=== PATIENT | female | born 1990 | race Caucasian/White ===

== ENCOUNTER → 2019-11-30 13:04 | Outpatient (CLI) | payer OTHER, SELFPAY ==
--- NOTE | 2019-11-30 13:10 | US_ITS ---
PROCEDURE: US THYROID CLINICAL INDICATION: THYROMEGALY COMPARISON: No exams were available for comparison FINDINGS: Right lobe: 1.8cm x 4.0cm x 1.6cm Left lobe: 1.7cm x 3.6cm x 1.3cm Isthmus: Prominent at 5 mm Additional findings: There is a 10 mm hypoechoic nodule in the mid polar region on the right with enhanced through transmission of sound. There are some low level echoes within this nodule. IMPRESSION: Complex cystic nodule on the right. T rads category 1, benign Dictated by: Francisco Eisenberg MD 12/01/2019 09:00 Francisco Eisenberg MD in [place] 12/01/2019 09:00
== END ==
PROVIDERS: PCP Nurse Practitioner Family; Visit Provider Nurse Practitioner
DX: I01.0 Acute rheumatic pericarditis (principal)
CPT/HCPCS: 76536

== ENCOUNTER → 2020-07-12 15:40 | Outpatient (CLI) | payer OTHER, SELFPAY ==
--- NOTE | 2020-07-12 15:43 | US_ITS ---
PROCEDURE: US THYROID CLINICAL INDICATION: THYROID NODULE 6 month follow up thyroid nodule COMPARISON: US US THYROID from 11/30/2019 FINDINGS: Right lobe: 2.3cm x 4.2cm x 2.0cm. There is a 12 mm cyst in the mid polar region of the right lobe of the thyroid gland. Previously there was some low level echoes within this nodule which are no longer apparent. Left lobe: 1.4cm x 4.1cm x 2.0cm. Unremarkable Isthmus: Unremarkable Additional findings: IMPRESSION: Benign-appearing cyst of the right lobe of the thyroid gland measuring 12 mm Dictated by: Francisco Eisenberg MD 07/15/2020 13:38 Francisco Eisenberg MD in [place] 07/15/2020 13:38
== END ==
PROVIDERS: PCP Nurse Practitioner; Visit Provider Nurse Practitioner
DX: E04.1 Nontoxic single thyroid nodule (principal)
CPT/HCPCS: 76536

== ENCOUNTER → 2020-07-31 14:29 | Outpatient (CLI) | payer OTHER, SELFPAY ==
--- NOTE | 2020-07-31 | CA_ITS ---
APPROVED REPORT Left Lower Extremity Venous Study for DVT. Live Truck Operator: DANETTE Indications Lower Extremity Pain: Left Patient denies trauma. She states she started having pain in her mid posterior calf 1 week ago. Family history of DVT and PE in mother. Vein Imaging CFV (L): compressive, spontaneous, phasic, augmentation FEM (L): compressive, spontaneous, phasic, augmentation POP (L): compressive, spontaneous, phasic, augmentation PTV (L): Compressible GSV (L): compressive, spontaneous, phasic, augmentation SSV (L): Compressible Peroneals (L):Compressible GAS (L): Compressible Findings No evidence of DVT or superficial thrombophlebitis in the veins scanned of the left lower extremity. Conclusion No evidence of DVT or superficial thrombophlebitis in the veins scanned of the left lower extremity. Electronically signed by : Francisco Eisenberg MD 07/31/2020 17:24:40
== END ==
PROVIDERS: PCP Nurse Practitioner; Visit Provider Nurse Practitioner
DX: M79.662 Pain in left lower leg (principal)
CPT/HCPCS: 93971

== ENCOUNTER → 2022-05-11 23:21 | Outpatient (CLI) | payer BC, SELFPAY ==
[2022-05-11 18:48] LABS: Basophils % 0.8 % (0.1-2.0); Eosinophils # 0.3 K/mm3 (0.0-0.4); Eosinophils % 5.3 % (0.1-12.0); Hematocrit 45.3 % (37.0-47.0); Hemoglobin 14.5 g/dL (12.2-16.2); Lymphocytes # 1.8 K/mm3 (0.7-4.5); Lymphocytes % 34.6 % (10-50); Mean Corpuscular Volume 87.6 fl (81-99); Mean Platelet Volume 8.6 fl (7.4-10.4); Monocytes # 0.3 K/mm3 (0.1-1.0); Monocytes % 5.9 % (1.7-9.3); Neutrophils # 2.8 K/mm3 (1.8-7.8); Neutrophils % 53.4 % (37.0-80.0); Platelet Count 288 K/mm3 (142-424); Red Blood Count 5.18 M/mm3 (4.20-5.40); Red Cell Distribution Width 14.3 % (11.5-17.5); White Blood Count 5.3 K/mm3 (4.8-10.8)
[2022-05-11 18:53] LABS: Alanine Aminotransferase 21 U/L (12-78); Albumin Level 3.7 g/dl (3.5-5.0); Albumin/Globulin Ratio 1.5 (1.1-1.8); Alkaline Phosphatase 94 U/L (38-126); Anion Gap 6.9 mEq/L (5-15); Aspartate Amino Transferase 23 U/L (14-36); Bilirubin,Total 0.3 mg/dl (0.2-1.3); Blood Urea Nitrogen 6 mg/dl (7-17); Calcium 8.4 mg/dl (8.4-10.2); Carbon Dioxide 24 mmol/L (22.0-30.0); Chloride 110 mmol/L (98-107); Chol/HDL Ratio 2.9 (1-3.5); Cholesterol 128 mg/dl (140-200); Estimated Glomerular Filt Rate 117 ml/min (>60); GFR (African American) 142 ML/MIN (>60); Globulin 2.4 g/dL (1.3-3.2); Glucose 96 mg/dl (74-100); HDL Cholesterol 44 mg/dl (40-60); Potassium 3.9 mmoL/L (3.5-5.1); Sodium 137 mmol/L (136-145); Total Protein,Serum 6.1 g/dl (6.3-8.2); Triglycerides 75 mg/dl (30-150); VLDL Cholesterol 15 mg/dL (0-40)
[2022-05-11 19:07] LABS: Direct LDL Cholesterol 73.64 mg/dL (100-129)
[2022-05-11 19:16] LABS: 25-OH Vitamin D, Total < 12.8 ng/mL (30-100)
[2022-05-11 19:24] LABS: Thyroid Stimulating Hormone 0.86 uIU/mL (0.465-4.68)
[2022-05-11 19:37] LABS: Hemoglobin A1C 4.9 % (4.0-6.0)
[2022-05-11 19:43] LABS: Vitamin B12 232 pg/mL (239-931)
== END ==
LOC: LAB.DROPOF 23:21
PROVIDERS: PCP Nurse Practitioner; Visit Provider Nurse Practitioner
DX: I10 Essential (primary) hypertension (principal); F41.8 Other specified anxiety disorders; E53.8 Deficiency of other specified B group vitamins; E55.9 Vitamin D deficiency, unspecified; E66.9 Obesity, unspecified; Z68.38 Body mass index [BMI] 38.0-38.9, adult
CPT/HCPCS: 80053; 80061; 82306; 82607; 83036; 84443; 85025

== ENCOUNTER → 2022-07-27 23:20 | Outpatient (CLI) | payer BC, SELFPAY ==
[2022-07-27 19:28] LABS: Creatinine,Urine Random 320 mg/dL (Not Estab.); Microalbumin/Creatinine Ratio 9.4
[2022-07-27 19:48] LABS: Chloride 100 mmol/L (98-107); Potassium 4.6 mmoL/L (3.5-5.1); Sodium 137 mmol/L (136-145)
[2022-07-27 19:50] LABS: Alanine Aminotransferase 24 U/L (12-78); Aspartate Amino Transferase 34 U/L (14-36); Blood Urea Nitrogen 7 mg/dl (7-17); Estimated Glomerular Filt Rate 117 ml/min (>60); GFR (African American) 142 ML/MIN (>60)
[2022-07-27 19:51] LABS: Albumin Level 4.3 g/dl (3.5-5.0); Albumin/Globulin Ratio 1.5 (1.1-1.8); Alkaline Phosphatase 102 U/L (38-126); Anion Gap 17.6 mEq/L (5-15); Bilirubin,Total 0.7 mg/dl (0.2-1.3); Calcium 9.1 mg/dl (8.4-10.2); Carbon Dioxide 24 mmol/L (22.0-30.0); Globulin 2.8 g/dL (1.3-3.2); Glucose 87 mg/dl (74-100); Total Protein,Serum 7.1 g/dl (6.3-8.2)
[2022-07-27 20:07] LABS: 25-OH Vitamin D, Total 23.2 ng/mL (30-100)
[2022-07-27 20:42] LABS: Vitamin B12 268 pg/mL (239-931)
== END ==
LOC: LAB.DROPOF 23:21
PROVIDERS: PCP Nurse Practitioner; Visit Provider Nurse Practitioner
DX: I10 Essential (primary) hypertension (principal); E53.8 Deficiency of other specified B group vitamins; E55.9 Vitamin D deficiency, unspecified
CPT/HCPCS: 80053; 82043; 82306; 82570; 82607

== ENCOUNTER → 2023-03-26 12:57 | Outpatient (CLI) | payer BC, SELFPAY ==
[2023-03-27 10:09] LABS: Progesterone 9.3 ng/mL (.)
== END ==
LOC: LAB 12:58
PROVIDERS: PCP Nurse Practitioner; Visit Provider Obstetrics & Gynecology
DX: N92.6 Irregular menstruation, unspecified (principal)
CPT/HCPCS: 36415; 84144; 84702

== ENCOUNTER 2023-03-30 07:39 | Outpatient (CLI) | payer BC, SELFPAY | END 2023-03-30 23:59 | LOC: LAB.DROPOF 03-31 07:39 | PROVIDERS: PCP Obstetrics & Gynecology; Visit Provider Obstetrics & Gynecology | DX: Z34.91 Encounter for supervision of normal pregnancy, unspecified, first trimester (principal); Z3A.09 9 weeks gestation of pregnancy; B96.89 Other specified bacterial agents as the cause of diseases classified elsewhere | CPT/HCPCS: 87086 ==

== ENCOUNTER 2023-04-02 11:04 | Outpatient (CLI) | payer BC, SELFPAY ==
[2023-04-02 11:45] LABS: Basophils % 0.6 % (0.1-2.0); Eosinophils # 0.2 K/mm3 (0.0-0.4); Eosinophils % 2.7 % (0.1-12.0); Hematocrit 42.4 % (37.0-47.0); Hemoglobin 13.8 g/dL (12.2-16.2); Lymphocytes # 1.7 K/mm3 (0.7-4.5); Lymphocytes % 25.3 % (10-50); Mean Corpuscular HGB Conc 32.5 g/dL (31.8-35.4); Mean Corpuscular Hemoglobin 27.9 pg (27.0-31.2); Mean Corpuscular Volume 85.8 fl (81-99); Mean Platelet Volume 8.1 fl (7.4-10.4); Monocytes # 0.4 K/mm3 (0.1-1.0); Monocytes % 6.4 % (1.7-9.3); Neutrophils # 4.4 K/mm3 (1.8-7.8); Neutrophils % 65.1 % (37.0-80.0); Platelet Count 243 K/mm3 (142-424); Red Blood Count 4.94 M/mm3 (4.20-5.40); Red Cell Distribution Width 13.7 % (11.5-17.5); White Blood Count 6.7 K/mm3 (4.8-10.8)
[2023-04-02 12:18] LABS: Chloride 104 mmol/L (98-107); Potassium 3.7 mmoL/L (3.5-5.1); Sodium 137 mmol/L (136-145)
[2023-04-02 12:21] LABS: Alanine Aminotransferase 22 U/L (12-78); Albumin Level 4.2 g/dl (3.5-5.0); Albumin/Globulin Ratio 1.6 (1.1-1.8); Alkaline Phosphatase 68 U/L (38-126); Anion Gap 13.7 mEq/L (5-15); Aspartate Amino Transferase 24 U/L (14-36); Bilirubin,Total 0.4 mg/dl (0.2-1.3); Blood Urea Nitrogen 5 mg/dl (7-17); Carbon Dioxide 23 mmol/L (22.0-30.0); Estimated Glomerular Filt Rate 117 ml/min (>60); GFR (African American) 141 ML/MIN (>60); Globulin 2.6 g/dL (1.3-3.2); Glucose 71 mg/dl (74-100); Total Protein,Serum 6.8 g/dl (6.3-8.2)
[2023-04-02 13:56] LABS: Vitamin B12 249 pg/mL (239-931)
[2023-04-02 15:07] LABS: Collection Time,Urine 935 hours; Total Volume,Urine 1050 mL (600-1600)
[2023-04-02 15:46] LABS: Creatinine 24 Hour,Urine 935 mg/24hr (630-2500); Patient Height,Urine 75 inches; Patient Weight,Urine 229 lbs
[2023-04-02 15:55] LABS: Creatinine Clearance Urine 2.5 mL/min (25-115); Creatinine,Urine Random 89 mg/dL (Not Estab.)
[2023-04-02 17:56] LABS: Total Protein 24 Hour,Urine 105 mg/24 hr (40-90)
[2023-04-03 14:35] LABS: HIV Screen 4th Generation wRfx Non Reactive (Non Reactive); Rapid Plasma Reagin Ab Titer Non Reactive titer (NonRea<1:1)
[2023-04-11 15:32] LABS: 1,25 Dihydroxy Vitamin D 74 pg/mL (.); 1,25-Dihydroxy, Vitamin D-2 <10 pg/mL (.); 1,25-Dihydroxy, Vitamin D-3 74 pg/mL (.)
[2023-04-14 08:44] LABS: Hepatitis B Surface Antigen Negative; Hepatitis C Antibody Non Reactive
[2023-04-14 08:45] LABS: Rubella Antibodies, IgG 1.21
== END 2023-04-02 23:59 ==
LOC: LAB 11:05
PROVIDERS: PCP Nurse Practitioner; Visit Provider Obstetrics & Gynecology
DX: Z34.91 Encounter for supervision of normal pregnancy, unspecified, first trimester (principal); Z3A.09 9 weeks gestation of pregnancy
CPT/HCPCS: 36415; 80053; 82575; 82607; 82652; 84155; 85025; 86593; 86703; 86762; 86850; 87340; 87380; G0432

== ENCOUNTER 2023-05-10 11:19 | Outpatient (CLI) | payer BC, SELFPAY ==
[2023-05-10 11:23] LABS: Adenovirus,PCR Not Detected (NotDetected); Coronavirus 229E Not Detected (NotDetected); Coronavirus NL63 Not Detected (NotDetected); Coronavirus OC43 Not Detected (NotDetected); Coronovirus HKU1,PCR Not Detected (NotDetected); Human Metapneumovirus Not Detected (NotDetected); Influenza A, PCR Not Detected (NotDetected); Influenza AH1, 2009 Not Detected (NotDetected); Influenza AH1, PCR Not Detected (NotDetected); Influenza AH3,PCR Not Detected (NotDetected); Influenza B, PCR Not Detected (NotDetected); Parainfluenza 1, PCR Not Detected (NotDetected); Parainfluenza 2, PCR Not Detected (NotDetected); Parainfluenza 3, PCR Not Detected (NotDetected); Parainfluenza 4, PCR Not Detected (NotDetected); Respiratory Syncytial Virus Not Detected (NotDetected); Rhinovirus/Enterovirus Not Detected (NotDetected)
[2023-05-10 11:56] LABS: Basophils % 0.2 % (0.1-2.0); Eosinophils # 0.1 K/mm3 (0.0-0.4); Eosinophils % 2.1 % (0.1-12.0); Hematocrit 37.8 % (37.0-47.0); Hemoglobin 12.7 g/dL (12.2-16.2); Lymphocytes # 0.7 K/mm3 (0.7-4.5); Lymphocytes % 13.2 % (10-50); Mean Corpuscular HGB Conc 33.6 g/dL (31.8-35.4); Mean Corpuscular Hemoglobin 28.2 pg (27.0-31.2); Mean Corpuscular Volume 83.8 fl (81-99); Mean Platelet Volume 8.7 fl (7.4-10.4); Monocytes # 0.4 K/mm3 (0.1-1.0); Monocytes % 7.6 % (1.7-9.3); Neutrophils # 3.8 K/mm3 (1.8-7.8); Neutrophils % 76.9 % (37.0-80.0); Platelet Count 162 K/mm3 (142-424); Red Blood Count 4.51 M/mm3 (4.20-5.40); Red Cell Distribution Width 13.9 % (11.5-17.5)
[2023-05-10 17:26] LABS: Coronavirus 19, PCR Detected (NotDetected)
== END 2023-05-10 23:59 ==
LOC: LAB 11:20
PROVIDERS: PCP Nurse Practitioner; Visit Provider Nurse Practitioner
DX: J06.9 Acute upper respiratory infection, unspecified (principal); U07.1 COVID-19
CPT/HCPCS: 36415; 85025; 87632; 87635

== ENCOUNTER 2023-05-28 09:31 | Outpatient (CLI) | payer BC, SELFPAY ==
[2023-05-28] MEDS: MVI, ADULT NO.1 WITH VIT K 10 ML, THIAMINE HCL 100 MG, MAGNESIUM SULFATE 2 GM in LACTAT... 150 ML IV (10:17)
[2023-05-28 10:24] VITALS: BP 136/74; PULSE 100; RESP 18; O2SAT 99
[2023-05-28 12:34] VITALS: BP 147/75
[2023-05-28 14:20] VITALS: BP 138/76; PULSE 86; RESP 18
== END 2023-05-28 14:20 | disposition home or self-care (01) ==
LOC: INF 09:32
PROVIDERS: PCP Nurse Practitioner; Visit Provider Obstetrics & Gynecology
DX: O21.9 Vomiting of pregnancy, unspecified (principal); Z3A.17 17 weeks gestation of pregnancy
CPT/HCPCS: 96365; 96366

== ENCOUNTER 2023-06-18 10:10 | Outpatient (CLI) | payer BC, SELFPAY ==
--- NOTE | 2023-06-18 10:17 | US_ITS ---
PROCEDURE: US OB /MATERNAL DETAIL CLINICAL INDICATION: 20 wk + Anatomy Scan-US OB Complete COMPARISON: No exams were available for comparison FINDINGS: Transabdominal sonographic images of the pelvis were obtained. From her established due date she is 20 weeks 5 days. Single viable intrauterine gestation. Breech position. Placenta: Anteriorplacenta grade 1. There is an average amount of fluid. The cervix appears satisfactory. Closed and measuring 3.1 cm in length. Complete survey performed and was unremarkable on the submitted images as in PACS. No discrete anomalies identified on survey imaging by technologist. Active fetus. Three-vessel cord with satisfactory umbilical cord insertion. 4- chamber heart noted. Situs, aortic arch, LVOT, RVOT, three-vessel view appear normal. Survey of brain & ventricles Unremarkable. Cerebellum, thalamus, choroid plexus, cisterna magna appear normal. Face and neck survey unremarkable. Profile, nasion, lips and nose appeared normal. Diaphragm and chest views unremarkable. Abdomen: Both kidneys noted. There is mild renal pelvis dilation of the left kidney measuring 4.75 mm. Stomach and bladder noted and satisfactory. Spine: Survey of the spine satisfactory with no anomalies identified nor imaged. Cervical, thoracic, lower spine appear normal. Both arms and legs noted. Amniotic Fluid: Adequate. Measurements: Average ultrasound age 20weeks 6days. Estimated due date by ultrasound age 0810/30/2023. Estimated weight 376g BPD = 21weeks 1day HC = 20weeks 4days AC = 20weeks 3days FL = 21weeks 2days Growth Percentile= 47 Heart Rate = 149bpm Cerebellum = 20weeks 6days Humerus = 21weeks 1day HC/AC is 1.19 FL/BPD is 0.71 FL/AC is 0.23 IMPRESSION: 1. Viable fetus in the breech presentation with an anterior placenta grade 1. 2. The fluid is within normal limits. 3. Anatomical scan appears normal. 4. There is 4.75 mm of mild renal pelvis dilation in the left kidney. Suggest follow-up ultrasound at 28 weeks. 5. biometry is consistent with a dates. Dictated by: Jed White MD 06/18/2023 13:24 Jed White MD in [facility] 06/18/2023 13:24
== END 2023-06-18 23:59 ==
LOC: RAD 10:11
PROVIDERS: PCP Nurse Practitioner; Visit Provider Obstetrics & Gynecology
DX: O26.892 Other specified pregnancy related conditions, second trimester (principal); Z3A.20 20 weeks gestation of pregnancy; Z36.3 Encounter for antenatal screening for malformations; I10 Essential (primary) hypertension; E66.9 Obesity, unspecified; Z68.35 Body mass index [BMI] 35.0-35.9, adult
CPT/HCPCS: 76811

== ENCOUNTER 2023-07-16 08:56 | Outpatient (CLI) | payer BC, SELFPAY ==
[2023-07-16 09:17] VITALS: BP 142/79; PULSE 86; RESP 16; TEMP 36.6; O2SAT 98
[2023-07-16] MEDS: MVI, ADULT NO.1 WITH VIT K 10 ML, THIAMINE HCL 100 MG, MAGNESIUM SULFATE 2 GM in LACTAT... 250 ML IV (09:17)
[2023-07-16 10:15] VITALS: BP 131/86; PULSE 87; RESP 16; O2SAT 98
[2023-07-16 12:15] VITALS: BP 124/72; PULSE 88; RESP 14; O2SAT 99
[2023-07-16 13:15] VITALS: BP 128/70; PULSE 89; RESP 16; TEMP 36.6; O2SAT 99
== END 2023-07-16 13:20 | disposition home or self-care (01) ==
LOC: INF 08:57
PROVIDERS: PCP Nurse Practitioner; Visit Provider Obstetrics & Gynecology
DX: O21.9 Vomiting of pregnancy, unspecified (principal); Z3A.24 24 weeks gestation of pregnancy
CPT/HCPCS: 96365; 96366

== ENCOUNTER 2023-07-30 07:31 | Outpatient (CLI) | payer BC, SELFPAY ==
[2023-07-30 07:49] LABS: Basophils % 0.5 % (0.1-2.0); Eosinophils # 0.2 K/mm3 (0.0-0.4); Hematocrit 36.2 % (37.0-47.0); Hemoglobin 11.7 g/dL (12.2-16.2); Lymphocytes # 1.5 K/mm3 (0.7-4.5); Lymphocytes % 20.1 % (10-50); Mean Corpuscular HGB Conc 32.4 g/dL (31.8-35.4); Mean Corpuscular Hemoglobin 28.2 pg (27.0-31.2); Mean Corpuscular Volume 86.9 fl (81-99); Mean Platelet Volume 8.8 fl (7.4-10.4); Monocytes # 0.3 K/mm3 (0.1-1.0); Monocytes % 4.6 % (1.7-9.3); Neutrophils # 5.3 K/mm3 (1.8-7.8); Neutrophils % 71.9 % (37.0-80.0); Platelet Count 217 K/mm3 (142-424); Red Blood Count 4.17 M/mm3 (4.20-5.40); Red Cell Distribution Width 14.8 % (11.5-17.5); White Blood Count 7.3 K/mm3 (4.8-10.8)
[2023-07-30] MEDS: MVI, ADULT NO.1 WITH VIT K 10 ML, THIAMINE HCL 100 MG, MAGNESIUM SULFATE 2 GM in LACTAT... 250 ML IV (09:26)
[2023-07-30 09:30] VITALS: BP 120/77; PULSE 90; RESP 18; TEMP 36.7; O2SAT 99
[2023-07-30 09:38] LABS: Glucose 1 Hour 123 mg/dL (74-100); Glucose,Fasting 102 mg/dl (74-100)
[2023-07-30 10:30] VITALS: BP 120/68; PULSE 84
[2023-07-30 11:30] VITALS: BP 116/72; PULSE 87
[2023-07-30 12:30] VITALS: BP 124/73; PULSE 83
[2023-07-30 13:30] VITALS: BP 118/73; PULSE 84
== END 2023-07-30 13:40 | disposition home or self-care (01) ==
LOC: INF 07:31
PROVIDERS: PCP Nurse Practitioner; Visit Provider Obstetrics & Gynecology
DX: O26.892 Other specified pregnancy related conditions, second trimester (principal); O21.9 Vomiting of pregnancy, unspecified; Z3A.26 26 weeks gestation of pregnancy
CPT/HCPCS: 36415; 82951; 85025; 96365; 96366

== ENCOUNTER 2023-08-13 07:54 | Outpatient (CLI) | payer BC, SELFPAY ==
[2023-08-13] MEDS: MVI, ADULT NO.1 WITH VIT K 10 ML, THIAMINE HCL 100 MG, MAGNESIUM SULFATE 2 GM in LACTAT... 150 ML IV (08:19)
[2023-08-13 08:20] VITALS: BP 118/74; PULSE 80; RESP 18; O2SAT 97
[2023-08-13 09:20] VITALS: BP 122/76; PULSE 76
[2023-08-13 10:20] VITALS: BP 121/70; PULSE 78
[2023-08-13 11:20] VITALS: BP 125/71; PULSE 74
[2023-08-13 12:20] VITALS: BP 134/78; PULSE 75
== END 2023-08-13 12:30 | disposition home or self-care (01) ==
LOC: INF 07:55
PROVIDERS: PCP Nurse Practitioner; Visit Provider Obstetrics & Gynecology
DX: O21.9 Vomiting of pregnancy, unspecified (principal); Z3A.28 28 weeks gestation of pregnancy
CPT/HCPCS: 96365; 96366

== ENCOUNTER 2023-08-13 12:41 | Outpatient (CLI) | payer BC, SELFPAY ==
--- NOTE | 2023-08-13 12:42 | US_ITS ---
PROCEDURE: US OB FOLLOW UP CLINICAL INDICATION: 4.75 mm of mild renal pelvis dilation in left kid COMPARISON: US US OB /MATERNAL DETAIL from 06/18/2023 FINDINGS: Transabdominal sonographic images of the pelvis were obtained. The following parameters are obtained: From her established due date she is 28weeks 5days. Viable fetus in the cephalic presentation with an anterior placenta grade 1. The cervix measures 5.01 cm. heart rate: 129bpm bpm. BPD: 31weeks 3days, 97 percentile HC: 29weeks 4days, 40 percentile AC: 29weeks 0 days, 50 percentile FL: 29weeks 3days, 55 percentile HC/AC: 1.09 FL/BPD: 0.72 FL/AC: 0.23 Growth percentile: 59 percentile Amniotic fluid index: 10.73cm, MVP 3.69 cm. No obvious anomalies evident. stomach, bladder, kidneys, three-vessel cord, four chamber heart appear normal. There is 3.8 mm of renal pelvis dilation dilation of the right kidney and 4.6 mm dilation of the left kidney. IMPRESSION: 1. Viable fetus in the cephalic presentation with an anterior placenta grade 1. 2. The fluid is within normal limits with an amniotic fluid index of 10.73 cm, MVP 3.69 cm. 3. There has been good interval growth with the fetus currently 59th percentile. 4. There continues to be mild, bilateral renal pelvis dilation. There is 3.8 mm on the right side and 4.6 mm on the left side. No increase in dilation. 5. Suggest perform renal ultrasound for completeness. Dictated by: Jed White MD 08/13/2023 17:14 Jed White MD in [place] 08/13/2023 17:14
== END 2023-08-13 23:59 | disposition home or self-care (01) ==
LOC: RAD 12:42
PROVIDERS: PCP Nurse Practitioner; Visit Provider Obstetrics & Gynecology
DX: O28.3 Abnormal ultrasonic finding on antenatal screening of mother (principal); Z3A.28 28 weeks gestation of pregnancy
CPT/HCPCS: 76816

== ENCOUNTER 2023-08-27 08:38 | Outpatient (CLI) | payer BC, SELFPAY ==
[2023-08-27] MEDS: MVI, ADULT NO.1 WITH VIT K 10 ML, THIAMINE HCL 100 MG, MAGNESIUM SULFATE 2 GM in LACTAT... 125 ML IV (08:57)
[2023-08-27 09:00] VITALS: BP 144/82; PULSE 93; RESP 16; O2SAT 100
[2023-08-27 10:00] VITALS: BP 127/72; PULSE 89; RESP 16; O2SAT 100
[2023-08-27 11:00] VITALS: BP 138/82; PULSE 87; RESP 15
[2023-08-27 13:00] VITALS: BP 129/71; PULSE 100; RESP 15
== END 2023-08-27 13:05 | disposition home or self-care (01) ==
LOC: INF 08:38
PROVIDERS: PCP Nurse Practitioner; Visit Provider Obstetrics & Gynecology
DX: O21.9 Vomiting of pregnancy, unspecified (principal); Z3A.30 30 weeks gestation of pregnancy
CPT/HCPCS: 96365; 96366; J7120

== ENCOUNTER 2023-09-01 22:33 | Observation (INO) | payer BC, SELFPAY ==
[2023-09-01 21:17] VITALS: BP 149/86; PULSE 98; RESP 19; TEMP 37.3; O2SAT 98; BMI 35.9
[2023-09-01 21:23] VITALS: BMI 43.0
--- NOTE | 2023-09-01 21:29 | ECG_ITS ---
APPROVED REPORT Exam: Resting ECG HR:135 bpm ECG Measurements Heart Rate 135 AXES LA 140 P 49 QRSd 85 QRS 64 QT 301 T 19 QTc 380 Conclusion SINUS TACHYCARDIA ABNORMAL RHYTHM ECG UNCONFIRMED REPORT Electronically signed by : Allen Sesay MD 09/04/2023 16:44:20
[2023-09-01 21:57] LABS: Microscopic, Urine URINE MICROSCOPIC (MICROSCOPIC)
[2023-09-01 21:58] VITALS: BP 142/81; PULSE 140
[2023-09-01 22:02] LABS: Appearance,Urine CLEAR (Clear); Bilirubin,Urine Negative (Negative); Blood, Urine Negative (Negative); Color,Urine YELLOW (Yellow); Glucose,Urine (UA) Negative (Negative); Ketones,Urine Negative (Negative); Leukocyte Esterase,Urine Negative (Negative); Nitrate,Urine Negative (Negative); Protein,Urine Negative (Negative); Specific Gravity, Urine <= 1.005 (1.005-1.030); Urobilinogen,Urine 0.2 EU/dl (0.2)
[2023-09-01 22:13] LABS: Amphetamine/Metha Screen,Urine Negative ng/ml (<1000)
[2023-09-01 22:14] LABS: Barbiturates Screen,Urine Negative ng/ml (<200); Benzodiazepines Screen,Urine Negative ng/ml (<200)
[2023-09-01 22:15] LABS: Cannabinoid Screen,Urine Negative ng/ml (<50)
[2023-09-01 22:16] LABS: Cocaine Screen,Urine Negative ng/ml (<300); Methadone Screen,Urine Negative ng/ml (<300)
[2023-09-01 22:17] LABS: Opiate Screen,Urine Negative ng/ml (<300)
[2023-09-01 22:18] LABS: Phencyclidine Screen,Urine Negative ng/ml (<25)
[2023-09-01 22:20] VITALS: BP 134/73; PULSE 143
[2023-09-01 22:45] VITALS: PULSE 140
--- NOTE | 2023-09-01 23:03 | EXP.MED.CON ---
Documented by User: Artur Landrum APRN 09/02/23 00:22 History of Present Illness *Admission Date: 09/01/23 *Reason for visit:: tachycardia *History of present illness: This is a 32-year-old female with 31 weeks of , past medical history of chronic hypertension GERD anxiety and obesity, presented to the hospital complaining for fast heart rate and headache. Patient was seen labs on August 26 by CORPORATE DIRECTOR OF PHARMACY/OB for chronic hypertension. Patient was on labetalol 200 mg twice a day. Patient states cannot tolerate it. Currently on nifedipine 30 mg. Other associated symptoms are bilateral lower extremity swollen, face flushed, headache. Patient denies any fever, no neurological deficits, no vaginal discharge, no frequent urination. [facility] Disclaimer: The information contained in this section may have been updated after the patient was seen, as this information can be updated by other users. Medical History GERD (gastroesophageal reflux disease) Pain of both breasts Vitamin D deficiency Vitamin B12 deficiency Thyroid nodule Obesity Anxiety with depression Essential hypertension Surgical History History of cholecystectomy History of tonsillectomy Family History Other Cancer Diabetes Heart attack Hyperlipidemia Hypertension Kidney disease Stroke Thyroid disorder Social History Smoking Status: Never smoker alcohol intake: never current occupational status: employed Travel in the last 8 weeks: None Review of Systems Review of Systems Review of systems:: pertinent systems reviewed and negative unless documented below Constitutional Constitutional: Reports fatigue, Reports headache(s), Reports lethargy and Reports weight gain ENT Ears, Nose, Mouth, and Throat: Reports headache(s) *Cardiovascular Cardiovascular: Reports edema, Reports leg edema and Reports rapid heart rate *Neurologic Neurologic: Reports headache(s) Endocrine Endocrine: Reports fatigue Exam Data for Last 24 hours Vital signs and Labs for Last 24 Hours: Laboratory Results - last 24 hr 09/01/23 21:16: Urine Color Yellow, Urine Appearance Clear, Urine pH 7.0, Ur Specific [place] <= 1.005, Urine Protein Negative, Urine Glucose (UA) Negative, Urine Ketones Negative, Urine Blood Negative, Urine Nitrate Negative, Urine Bilirubin Negative, Urine Urobilinogen 0.2, Ur Leukocyte Esterase Negative, Urine RBC None, Urine WBC None, Ur Squamous Epith Cells None, Urine Bacteria None, Urine Opiates Screen Negative, Urine Methadone Screen Negative, Ur Barbituates Screen Negative, Ur Phencyclidine Scrn Negative, Ur Amphetamines Screen Negative, U Benzodiazepines Scrn Negative, Urine Cocaine Screen Negative, U Marijuana (THC) Screen Negative I & O for Last 24 hours: Intake & Output 08/29/23 08/30/23 08/31/23 09/01/23 23:59 23:59 23:59 23:59 Weight 110.223 kg Constitutional Constitutional: mild distress, obese and cooperative *Routine HEENT Exam Head: Present normocephalic Eye: Present EOMI and PERRL ENT: Present mucous membranes moist *Routine Neck Exam Neck: Present supple; Absent lymphadenopathy Routine Chest/Breast/Axilla Exam Breast: Absent induration, erythema or rashes *Routine Respiratory Exam Respiratory: Present CTA bilaterally *Routine Cardiovascular Exam Cardiovascular: Present RRR, Normal S1, Normal S2 and tachycardia *Routine Abdominal Exam Abdominal: Present soft and normoactive bowel sounds; Absent tenderness *Routine Rectal Exam Patient deferred: visual exam *Routine Exam Patient deferred: external exam *Routine Extremities Exam Extremities: Present edema, full ROM and pulses intact; Absent cyanosis or clubbing *Routine Skin Exam Skin: Present warm; Absent rash *Routine Neurological Exam Neurological: Present alert, oriented X3, normal reflexes, moving all extremities and normal speech Routine Psychiatric Exam Psychiatric: Present anxious Meds Home Medications and Allergies Home Medications Medication Instructions Recorded Confirmed Type aspirin 81 mg tablet,delayed 81 mg PO DAILY 04/30/23 09/02/23 History release (Adult Aspirin Regimen) nifedipine 30 mg tablet,extended 30 mg PO DAILY #30 tabs 04/30/23 09/02/23 Rx release promethazine 12.5 mg tablet 12.5 mg PO Q6H PRN nausea and 06/01/23 09/02/23 Rx vomiting #20 tabs ondansetron 4 mg disintegrating 4 mg PO Q6H PRN nausea and 08/13/23 09/02/23 Rx tablet vomiting #30 tabs omeprazole 20 mg capsule,delayed 20 mg PO DAILY #30 caps 08/17/23 09/02/23 Rx release New Prescriptions to Start Prescriptions: Allergies Allergy/AdvReac Type Severity Reaction Status Date / Time No Known Allergies Allergy Verified 08/27/23 13:32 Results Labs 09/01/23 23:22 09/01/23 23:22 Labs: All other labs normal. Assessment and Plan *Assessment and plan (1) Pre-eclampsia during in third trimester, antepartum: Status: Acute Category: Medical Code(s): O14.93 - Unspecified pre-eclampsia, third trimester (2) Hypertension affecting : Status: Acute Qualifiers: Trimester: third trimester Qualified Code(s): O16.3 - Unspecified maternal hypertension, third trimester Category: Medical Code(s): O16.9 - Unspecified maternal hypertension, unspecified trimester (3) GERD (gastroesophageal reflux disease): Status: Acute Qualifiers: Esophagitis presence: esophagitis presence not specified Qualified Code(s): K21.9 - Gastro-esophageal reflux disease without esophagitis Category: Medical Code(s): K21.9 - Gastro-esophageal reflux disease without esophagitis (4) Anemia affecting in third trimester: Status: Acute Category: Medical Code(s): O99.013 - Anemia complicating , third trimester (5) Obesity: Status: Acute Qualifiers: Body mass index: BMI 40.0-44.9 Obesity classification: adult class 3 (BMI >= 40) Obesity type: unspecified obesity type Serious obesity comorbidity presence: unspecified whether serious comorbidity present Qualified Code(s): E66.01 - Morbid (severe) obesity due to excess calories; Z68.41 - Body mass index [BMI] 40.0-44.9, adult Category: Medical Code(s): E66.9 - Obesity, unspecified Plan 32-year-old female with 31 weeks of , past medical history of chronic hypertension GERD anxiety and obesity, presented to the hospital complaining for fast heart rate and headache. Patient was seen labs on August 26 by CORPORATE DIRECTOR OF PHARMACY/OB for chronic hypertension. On my assessment patient seen with mild distress. EKG was showing sinus tachycardia no ST changes. Blood pressure was 140 systolic. No chest pain associated with. Assessment and plan: Chronic Hypertension preeclampsia with tachycardia 31 week anemia with -urine protein pending -CBC/CMP/ TSH ordered. -EKG reviewed. Sinus tachy. No ischemic changes. -Hydralazine 5mg IV once. patient refused labetalol , due to previous side effects. Cardiac monitoring. Obtain baseline HR and BP. -resume nifedipine ER 30 mg daily and aspirin. Patient may need a secondary hypotensive agent. start multivitamin with iron GERD: on home omeprazol Obesity BMI 43. Complicates all aspect of care. ? Full code Thanks for the consult. EKG EKG EKG results cardiology: interpreted by Provider, sinus rhythm and normal ST/T EKG shows: tachycardia Sinus rhythms and dysrhythmias: sinus tachycardia Documented by User: Solitario Rodriguez MD 09/02/23 08:55 PFSH PFSH Medical History GERD (gastroesophageal reflux disease) Pain of both breasts Vitamin D deficiency Vitamin B12 deficiency Thyroid nodule Obesity Anxiety with depression Essential hypertension Surgical History History of cholecystectomy History of tonsillectomy Family History Other Cancer Diabetes Heart attack Hyperlipidemia Hypertension Kidney disease Stroke Thyroid disorder Social History Smoking Status: Never smoker alcohol intake: never current occupational status: employed Travel in the last 8 weeks: None Meds Home Medications and Allergies Home Medications Medication Instructions Recorded Confirmed Type aspirin 81 mg tablet,delayed 81 mg PO DAILY 04/30/23 09/02/23 History release (Adult Aspirin Regimen) nifedipine 30 mg tablet,extended 30 mg PO DAILY #30 tabs 04/30/23 09/02/23 Rx release promethazine 12.5 mg tablet 12.5 mg PO Q6H PRN nausea and 06/01/23 09/02/23 Rx vomiting #20 tabs ondansetron 4 mg disintegrating 4 mg PO Q6H PRN nausea and 08/13/23 09/02/23 Rx tablet vomiting #30 tabs omeprazole 20 mg capsule,delayed 20 mg PO DAILY #30 caps 08/17/23 09/02/23 Rx release New Prescriptions to Start Prescriptions: Allergies Allergy/AdvReac Type Severity Reaction Status Date / Time No Known Allergies Allergy Verified 08/27/23 13:32 Results Labs 09/01/23 23:22 09/01/23 23:22 Assessment and Plan *Assessment and plan (1) Pre-eclampsia during in third trimester, antepartum: Status: Acute Category: Medical Code(s): O14.93 - Unspecified pre-eclampsia, third trimester (2) Hypertension affecting : Status: Acute Qualifiers: Trimester: third trimester Qualified Code(s): O16.3 - Unspecified maternal hypertension, third trimester Category: Medical Code(s): O16.9 - Unspecified maternal hypertension, unspecified trimester (3) GERD (gastroesophageal reflux disease): Status: Acute Qualifiers: Esophagitis presence: esophagitis presence not specified Qualified Code(s): K21.9 - Gastro-esophageal reflux disease without esophagitis Category: Medical Code(s): K21.9 - Gastro-esophageal reflux disease without esophagitis (4) Anemia affecting in third trimester: Status: Acute Category: Medical Code(s): O99.013 - Anemia complicating , third trimester (5) Obesity: Status: Acute Qualifiers: Body mass index: BMI 40.0-44.9 Obesity classification: adult class 3 (BMI >= 40) Obesity type: unspecified obesity type Serious obesity comorbidity presence: unspecified whether serious comorbidity present Qualified Code(s): E66.01 - Morbid (severe) obesity due to excess calories; Z68.41 - Body mass index [BMI] 40.0-44.9, adult Category: Medical Code(s): E66.9 - Obesity, unspecified Plan 32-year-old female with 31 weeks of , past medical history of chronic hypertension GERD anxiety and obesity, presented to the hospital complaining for fast heart rate and headache. Patient was seen labs on August 26 by CORPORATE DIRECTOR OF PHARMACY/OB for chronic hypertension. On my assessment patient seen with mild distress. EKG was showing sinus tachycardia no ST changes. Blood pressure was 140 systolic. No chest pain associated with. Assessment and plan: Chronic Hypertension preeclampsia with tachycardia 31 week anemia with -urine protein pending -CBC/CMP/ TSH ordered. -EKG reviewed. Sinus tachy. No ischemic changes. -Hydralazine 5mg IV once. patient refused labetalol , due to previous side effects. Cardiac monitoring. Obtain baseline HR and BP. -resume nifedipine ER 30 mg daily and aspirin. Patient may need a secondary hypotensive agent. start multivitamin with iron GERD: on home omeprazole Obesity BMI 43. Complicates all aspect of care. ? Full code Thank you for the opportunity to consult on this patient. Will continue to follow along while admitted. Rounded on patient after nurse practitioner. Personally examined and interviewed patient. Agree with exam findings and care plan as documented.
[2023-09-01 23:35] LABS: Basophils % 0.3 % (0.1-2.0); Eosinophils # 0.1 K/mm3 (0.0-0.4); Eosinophils % 0.9 % (0.1-12.0); Hematocrit 36.8 % (37.0-47.0); Lymphocytes # 1.5 K/mm3 (0.7-4.5); Lymphocytes % 9.3 % (10-50); Mean Corpuscular HGB Conc 32.6 g/dL (31.8-35.4); Mean Corpuscular Hemoglobin 27.4 pg (27.0-31.2); Mean Corpuscular Volume 83.8 fl (81-99); Mean Platelet Volume 8.3 fl (7.4-10.4); Monocytes # 0.9 K/mm3 (0.1-1.0); Monocytes % 5.7 % (1.7-9.3); Neutrophils # 13.4 K/mm3 (1.8-7.8); Neutrophils % 83.9 % (37.0-80.0); Platelet Count 214 K/mm3 (142-424); Red Blood Count 4.39 M/mm3 (4.20-5.40); Red Cell Distribution Width 15.1 % (11.5-17.5)
[2023-09-01] MEDS: HYDRALAZINE 20MG/ML VIAL 5 MG IV (23:37)
[2023-09-01 23:40] VITALS: BP 116/63; PULSE 121; O2SAT 96
[2023-09-01 23:47] LABS: MANUAL DIFFERENTIAL MANUAL DIFFERENTIAL (MANUAL DIFF)
[2023-09-01 23:48] LABS: Alanine Aminotransferase 16 U/L (12-78); Albumin Level 3.8 g/dl (3.5-5.0); Albumin/Globulin Ratio 1.2 (1.1-1.8); Alkaline Phosphatase 145 U/L (38-126); Anion Gap 15.1 mEq/L (5-15); Aspartate Amino Transferase 23 U/L (14-36); Bilirubin,Total 0.4 mg/dl (0.2-1.3); Calcium 9.1 mg/dl (8.4-10.2); Carbon Dioxide 20 mmol/L (22.0-30.0); Chloride 104 mmol/L (98-107); Creatinine Clearance Estimated 135 mL/min (50-200); Estimated Glomerular Filt Rate 144 ml/min (>60); GFR (African American) 174 ML/MIN (>60); Globulin 3.2 g/dL (1.3-3.2); Glucose 106 mg/dl (74-100); Potassium 3.1 mmoL/L (3.5-5.1); Sodium 136 mmol/L (136-145)
[2023-09-01 23:52] VITALS: BP 111/57; PULSE 121; O2SAT 98
[2023-09-01 23:58] LABS: Blood Urea Nitrogen < 2 mg/dl (7-17)
[2023-09-02] VITALS (19 sets, daily range): BP systolic 103–128; BP diastolic 52–80; PULSE 100–121; RESP 16–18; TEMP 36.6–37.2; O2SAT 98–99
[2023-09-02 00:06] LABS: Free Thyroxine Index 3.3 ug/dL (5.93-13.13); T4 (Thyroxine) 17.4 ug/dl (5.53-11.0); Triiodothryronine (T3) Uptake 19 % (23.5-40.5)
[2023-09-02 00:19] LABS: Thyroid Stimulating Hormone 1.05 uIU/mL (0.465-4.68)
[2023-09-02 00:38] LABS: Eosinophils % 1 % (0-3); Lymphocytes % 14 % (10-50); Monocytes % 1 % (2-9); Neutrophils % 84 % (42-76); Platelet Estimate Normal; RBC Morphology Normal; Total Cells Counted 100
[2023-09-02 04:28] LABS: Adenovirus,PCR Not Detected (NotDetected); Coronavirus 229E Not Detected (NotDetected); Coronavirus NL63 Not Detected (NotDetected); Coronavirus OC43 Not Detected (NotDetected); Coronovirus HKU1,PCR Not Detected (NotDetected); Human Metapneumovirus Not Detected (NotDetected); Influenza A, PCR Not Detected (NotDetected); Influenza AH1, 2009 Not Detected (NotDetected); Influenza AH1, PCR Not Detected (NotDetected); Influenza AH3,PCR Not Detected (NotDetected); Influenza B, PCR Not Detected (NotDetected); Rhinovirus/Enterovirus Not Detected (NotDetected)
[2023-09-02 04:29] LABS: Bordetella Pertussis Not Detected (NotDetected); Chlamydophila Pneumoniae, PCR Not Detected (NotDetected); Coronavirus 19, PCR Not Detected (NotDetected); Mycoplasma Pneumoniae, PCR Not Detected (NotDetected); Parainfluenza 1, PCR Not Detected (NotDetected); Parainfluenza 2, PCR Not Detected (NotDetected); Parainfluenza 3, PCR Not Detected (NotDetected); Parainfluenza 4, PCR Not Detected (NotDetected); Respiratory Syncytial Virus Not Detected (NotDetected)
[2023-09-02 04:37] LABS: Strep Scrn Group A (Rapid) Negative (Negative)
[2023-09-02] MEDS: MVI, ADULT NO.1 WITH VIT K 10 ML, THIAMINE HCL 100 MG, MAGNESIUM SULFATE 2 GM in LACTAT... 125 ML IV (08:20)
[2023-09-02] MEDS: ASPIRIN EC 81MG TABLET 81 MG PO (08:20)
[2023-09-02] MEDS: METOPROLOL TARTRATE 25MG TABLET 25 MG PO (08:25)
--- NOTE | 2023-09-02 08:49 | P.PN_ITS ---
Subjective *Date: 09/02/23 *Time: 08:49 Interval history: Patient feeling well this morning. No nausea or vomiting overnight. Denies any chest pain or shortness of breath. Stable on room air. States she did not sleep overnight. Exam Data for Last 24 hours Vital signs and Labs for Last 24 Hours: Temp Pulse Resp BP Pulse Ox O2 Del Method 98.5 F 110 H 18 128/77 98 Room Air 09/02/23 07:26 09/02/23 07:26 09/02/23 07:09/02/23 07:09/02/23 07:09/02/23 07:26 Laboratory Results - last 24 hr 09/01/23 21:16: Urine Color Yellow, Urine Appearance Clear, Urine pH 7.0, Ur Specific [place] <= 1.005, Urine Protein Negative, Urine Glucose (UA) Negative, Urine Ketones Negative, Urine Blood Negative, Urine Nitrate Negative, Urine Bilirubin Negative, Urine Urobilinogen 0.2, Ur Leukocyte Esterase Negative, Urine RBC None, Urine WBC None, Ur Squamous Epith Cells None, Urine Bacteria None, Urine Opiates Screen Negative, Urine Methadone Screen Negative, Ur Barbituates Screen Negative, Ur Phencyclidine Scrn Negative, Ur Amphetamines Screen Negative, U Benzodiazepines Scrn Negative, Urine Cocaine Screen Negative, U Marijuana (THC) Screen Negative 09/01/23 23:22: WBC 16.0 H, RBC 4.39, Hgb 12.0 L, Hct 36.8 L, MCV 83.8, MCH 27.4, MCHC 32.6, RDW 15.1, Plt Count 214, MPV 8.3, Neut % (Auto) 83.9 H, Lymph % (Auto) 9.3 L, Frontier % (Auto) 5.7, Eos % (Auto) 0.9, Baso % (Auto) 0.3, Neut # (Auto) 13.4 H, Lymph # (Auto) 1.5, Frontier # (Auto) 0.9, Eos # (Auto) 0.1, Baso # (Auto) 0.0, Total Counted 100, Neutrophils % (Manual) 84 H, Lymphocytes % (Manual) 14, Monocytes % (Manual) 1 L, Eosinophils % (Manual) 1, Platelet Estimate Normal, RBC Morphology Normal, Sodium 136, Potassium 3.1 L, Chloride 104, Carbon Dioxide 20 L, Anion Gap 15.1 H, BUN < 2 L, Creatinine 0.50 L, Estimated Creat Clear 135, Estimated GFR 144, Est GFR ( Amer) 174, Glucose 106 H, Calcium 9.1, Total Bilirubin 0.4, AST 23, ALT 16, Alkaline Phosphatase 145 H, Total Protein 7.0, Albumin 3.8, Globulin 3.2, Albumin/Globulin Ratio 1.2, TSH 1.05, Free T4 Index 3.3 L, Thyroxine (T4) 17.4 H , T3 Uptake 19 L 09/02/23 04:10: Chlamy pneumoniae PCR Not detected, Adenovirus (PCR) Not detected, B. pertussis DNA (PCR) Not detected, Coronavirus OC43 (PCR) Not detected, Coronavirus HKU1 (PCR) Not detected, Coronavirus 229E (PCR) Not detected, SARS-CoV-2 (PCR) Not detected, Coronavirus NL63 (PCR) Not detected, Human Metapneumovir PCR Not detected, Influenza A (H1) PCR Not detected, Influ A (H1N1/09) PCR Not detected, Influenza A (H3) PCR Not detected, Influenza Type A (PCR) Not detected, Influenza Type B (PCR) Not detected, M. pneumoniae (PCR) Not detected, Parainfluenza 1 (PCR) Not detected, Parainfluenza 2 (PCR) Not detected, Parainfluenza 3 (PCR) Not detected, Parainfluenza 4 (PCR) Not detected, RSV (PCR) Not detected, Entero/Rhino (PCR) Not detected, Group A Strep Rapid Negative I & O for Last 24 hours: Intake & Output 08/30/23 08/31/23 09/01/23 09/02/23 23:59 23:59 23:59 23:59 Weight 110.223 kg Constitutional Constitutional: no acute distress, morbidly obese and cooperative *Routine HEENT Exam Head: Present normocephalic Eye: Present EOMI and PERRL ENT: Present mucous membranes moist *Routine Neck Exam Neck: Present supple; Absent lymphadenopathy *Routine Respiratory Exam Respiratory: Present CTA bilaterally; Absent rhonchi, wheezes or crackles *Routine Cardiovascular Exam Cardiovascular: Present tachycardia Comments: Regular rhythm *Routine Abdominal Exam Abdominal: Present soft and normoactive bowel sounds; Absent tenderness *Routine Rectal Exam Patient deferred: visual exam *Routine Exam Patient deferred: external exam *Routine Extremities Exam Extremities: Absent cyanosis, clubbing or edema *Routine Skin Exam Skin: Present warm; Absent rash *Routine Neurological Exam Neurological: Present alert, oriented X3 and moving all extremities; Absent altered mental status Assessment and Plan *Assessment and plan (1) Pre-eclampsia during in third trimester, antepartum: Status: Acute Category: Medical Code(s): O14.93 - Unspecified pre-eclampsia, third trimester (2) Hypertension affecting : Status: Acute Qualifiers: Trimester: third trimester Qualified Code(s): O16.3 - Unspecified maternal hypertension, third trimester Category: Medical Code(s): O16.9 - Unspecified maternal hypertension, unspecified trimester (3) GERD (gastroesophageal reflux disease): Status: Acute Qualifiers: Esophagitis presence: esophagitis presence not specified Qualified Code(s): K21.9 - Gastro-esophageal reflux disease without esophagitis Category: Medical Code(s): K21.9 - Gastro-esophageal reflux disease without esophagitis (4) Anemia affecting in third trimester: Status: Acute Category: Medical Code(s): O99.013 - Anemia complicating , third trimester (5) Obesity: Status: Acute Qualifiers: Obesity type: unspecified obesity type Obesity classification: adult class 3 (BMI >= 40) Serious obesity comorbidity presence: unspecified whethe r serious comorbidity present Body mass index: BMI 40.0-44.9 Qualified Code(s): E66.01 - Morbid (severe) obesity due to excess calories; Z68.41 - Body mass index [BMI] 40.0-44.9, adult Category: Medical Code(s): E66.9 - Obesity, unspecified Plan 32-year-old female with 31 weeks of , past medical history of chronic hypertension GERD anxiety and obesity, presented to the hospital complaining for fast heart rate and headache. Patient was seen on August 26 by INSIDE SALES PROFESSIONAL/OB for chronic hypertension. Patient doing better this morning. Blood pressure responding to night. Remains tachycardic. Discussed recommendations with rolling mill operator this morning. Clinically stable. Problems addressed as follows: Chronic Hypertension preeclampsia with tachycardia 31 week anemia with -urine protein negative -Labs overnight show creatinine of 0.5, TSH 1 -EKG reviewed. Sinus tachy. No ischemic changes. -Received Dralzine overnight with improvement in blood pressure. -Reports intolerance to labetalol in the past. Having flushing from nifedipine. -Recommend transition to metoprolol tartrate 25 mg twice daily. Monitor for tolerance and improvement in blood pressure and heart rate control. If tolerates well, would titrate dose to effect. If tolerating tartrate twice daily would recommend transitioning to succinate once daily. Dose conversion with succinate equaling total daily dose of tartrate. - start multivitamin with iron GERD: on home omeprazole Anxiety/insomnia: Would benefit from initiation of hydroxyzine 25 to 50 mg nightly as needed. Will help with sleep and anxiety. Thank you for the opportunity to consult on this patient. Will continue to follow along while she is admitted.
--- NOTE | 2023-09-02 16:02 | EXP.HPDC ---
General Admission date:: 09/01/23 Discharge date: 09/02/23 *Admission Date: 09/01/23 *Chief complaint: tachycardia *History of present illness: Mariaa cabrera is a 32-year-old G1, P0 who presented last night to labor and delivery with tachycardia, facial flushing, swelling, and generalized fatigue. Reports that she had been extremely fatigued for greater than 48 hours and had continued to put it off. She also states that she had a headache but states that it was relieved with Tylenol. She was admitted by my partner who also consulted the hospitalist team and we were very appreciative of their assistance with this case. Her NST was reactive on admission. [facility] Disclaimer: The information contained in this section may have been updated after the patient was seen, as this information can be updated by other users. Medical History GERD (gastroesophageal reflux disease) Pain of both breasts Vitamin D deficiency Vitamin B12 deficiency Thyroid nodule Obesity Anxiety with depression Essential hypertension Surgical History History of cholecystectomy History of tonsillectomy Family History Other Cancer Diabetes Heart attack Hyperlipidemia Hypertension Kidney disease Stroke Thyroid disorder Social History (Updated 09/02/23 @ 09:10 by Aixa Maher RN) Smoking Status: Never smoker alcohol intake: never current occupational status: employed Travel in the last 8 weeks: None do you feel safe at home: Yes victim of physical abuse: No victim of emotional abuse: No victim of sexual abuse: No Review of Systems Review of Systems Review of systems (narrative): Review of Systems Constitutional: Denies fever, chills, and sweats. Endorses fatigue and flushed face Eyes: Denies vision change/ pain Respiratory: Denies cough and shortness of breath Cardiovascular: Denies chest pain and lightheadedness Gastrointestinal: Denies contractions. Denies nausea, vomiting. Genitourinary: Denies dysuria and incontinence Musculoskeletal: Denies shoulder pain and back pain. Endorses lower extremity edema Neurological: Denies change in speech. Endorses headaches Constitutional Constitutional: Reports headache(s) ENT Ears, Nose, Mouth, and Throat: Reports headache(s) *Neurologic Neurologic: Reports headache(s) Exam Data for Last 24 hours Vital signs and Labs for Last 24 Hours: Temp Pulse Resp BP Pulse Ox O2 Del Method 98.1 F 100 H 17 124/76 98 Room Air 09/02/23 15:48 09/02/23 15:48 09/02/23 15:48 09/02/23 15:48 09/02/23 15:48 09/02/23 15:48 Laboratory Results - last 24 hr 09/01/23 21:16: Urine Color Yellow, Urine Appearance Clear, Urine pH 7.0, Ur Specific [place] <= 1.005, Urine Protein Negative, Urine Glucose (UA) Negative, Urine Ketones Negative, Urine Blood Negative, Urine Nitrate Negative, Urine Bilirubin Negative, Urine Urobilinogen 0.2, Ur Leukocyte Esterase Negative, Urine RBC None, Urine WBC None, Ur Squamous Epith Cells None, Urine Bacteria None, Urine Opiates Screen Negative, Urine Methadone Screen Negative, Ur Barbituates Screen Negative, Ur Phencyclidine Scrn Negative, Ur Amphetamines Screen Negative, U Benzodiazepines Scrn Negative, Urine Cocaine Screen Negative, U Marijuana (THC) Screen Negative 09/01/23 23:22: WBC 16.0 H, RBC 4.39, Hgb 12.0 L, Hct 36.8 L, MCV 83.8, MCH 27.4, MCHC 32.6, RDW 15.1, Plt Count 214, MPV 8.3, Neut % (Auto) 83.9 H, Lymph % (Auto) 9.3 L, [place] % (Auto) 5.7, Eos % (Auto) 0.9, Baso % (Auto) 0.3, Neut # (Auto) 13.4 H, Lymph # (Auto) 1.5, [place] # (Auto) 0.9, Eos # (Auto) 0.1, Baso # (Auto) 0.0, Total Counted 100, Neutrophils % (Manual) 84 H, Lymphocytes % (Manual) 14, Monocytes % (Manual) 1 L, Eosinophils % (Manual) 1, Platelet Estimate Normal, RBC Morphology Normal, Sodium 136, Potassium 3.1 L, Chloride 104, Carbon Dioxide 20 L, Anion Gap 15.1 H, BUN < 2 L, Creatinine 0.50 L, Estimated Creat Clear 135, Estimated GFR 144, Est GFR ( Amer) 174, Glucose 106 H, Calcium 9.1, Total Bilirubin 0.4, AST 23, ALT 16, Alkaline Phosphatase 145 H, Total Protein 7.0, Albumin 3.8, Globulin 3.2, Albumin/Globulin Ratio 1.2, TSH 1.05, Free T4 Index 3.3 L, Thyroxine (T4) 17.4 H, T3 Uptake 19 L 09/02/23 04:10: Chlamy pneumoniae PCR Not detected, Adenovirus (PCR) Not detected, B. pertussis DNA (PCR) Not detected, Coronavirus OC43 (PCR) Not detected, Coronavirus HKU1 (PCR) Not detected, Coronavirus 229E (PCR) Not detected, SARS-CoV-2 (PCR) Not detected, Coronavirus NL63 (PCR) Not detected, Human Metapneumovir PCR Not detected, Influenza A (H1) PCR Not detected, Influ A (H1N1/09) PCR Not detected, Influenza A (H3) PCR Not detected, Influenza Type A (PCR) Not detected, Influenza Type B (PCR) Not detected, M. pneumoniae (PCR) Not detected, Parainfluenza 1 (PCR) Not detected, Parainfluenza 2 (PCR) Not detected, Parainfluenza 3 (PCR) Not detected, Parainfluenza 4 (PCR) Not detected, RSV (PCR) Not detected, Entero/Rhino (PCR) Not detected, Group A Strep Rapid Negative I & O for Last 24 hours: Intake & Output 08/30/23 08/31/23 09/01/23 09/02/23 23:59 23:59 23:59 23:59 Weight 243 lb Constitutional Constitutional: no acute distress *Routine HEENT Exam Head: Present normocephalic Eye: Present EOMI and PERRL ENT: Present mucous membranes moist *Routine Neck Exam Neck: Present supple; Absent lymphadenopathy *Routine Respiratory Exam Respiratory: Present CTA bilaterally *Routine Cardiovascular Exam Cardiovascular: Present Normal S1, Normal S2 and tachycardia; Absent murmur *Routine Abdominal Exam Abdominal: Present soft and normoactive bowel sounds; Absent tenderness Comments: Gravid abdomen without tenderness *Routine Rectal Exam Rectal:: deferred *Routine Genitalia Exam Genitalia:: deferred *Routine Extremities Exam Extremities: Present edema; Absent cyanosis or clubbing *Routine Skin Exam Skin: Present warm; Absent rash *Routine Neurological Exam Neurological: Present alert and oriented X3 Meds Home Medications and Allergies Home Medications Medication Instructions Recorded Confirmed Type aspirin 81 mg tablet,delayed 81 mg PO DAILY 04/30/23 09/02/23 History release (Adult Aspirin Regimen) nifedipine 30 mg tablet,extended 30 mg PO DAILY #30 tabs 04/30/23 09/02/23 Rx release promethazine 12.5 mg tablet 12.5 mg PO Q6H PRN nausea and 06/01/23 09/02/23 Rx vomiting #20 tabs ondansetron 4 mg disintegrating 4 mg PO Q6H PRN nausea and 08/13/23 09/02/23 Rx tablet vomiting #30 tabs omeprazole 20 mg capsule,delayed 20 mg PO DAILY #30 caps 08/17/23 09/02/23 Rx release metoprolol tartrate 25 mg tablet 25 mg PO BID #60 tabs 09/02/23 Rx New Prescriptions to Start Prescriptions: metoprolol tartrate Carolin Tee Allergies Allergy/AdvReac Type Severity Reaction Status Date / Time No Known Allergies Allergy Verified 08/27/23 13:32 Hospital Course Hospital Course Hospital Course: Patient was admitted overnight and seen by the hospitalist. My primary concern is her tachycardia. I discussed her care with the hospitalist who agreed that starting metoprolol for rate control was our best option. I also believe there is a component of anxiety exacerbating this. We will discuss in office starting hydroxyzine or an anxiolytic medication. Of note discussed with the patient that it is important to consider that the side effects of nifedipine include facial flushing, fatigue, headache, and heart racing. The patient has previously tried and failed labetalol because it made her nauseous and tired. This she has been getting banana bags every other week which has helped improve her symptoms of . She will be discharged home with metoprolol 25 mg twice daily and follow-up tomorrow with a BPP and office visit Results Data Completed and Pending Labs on day of discharge: Labs from last 24 hours 09/02/23 09/01/23 09/01/23 04:10 23:22 21:16 WBC 16.0 H RBC 4.39 Hgb 12.0 L Hct 36.8 L MCV 83.8 MCH 27.4 MCHC 32.6 RDW 15.1 Plt Count 214 MPV 8.3 Neut % (Auto) 83.9 H Lymph % (Auto) 9.3 L [place] % (Auto) 5.7 Eos % (Auto) 0.9 Baso % (Auto) 0.3 Neut # (Auto) 13.4 H Lymph # (Auto) 1.5 [place] # (Auto) 0.9 Eos # (Auto) 0.1 Baso # (Auto) 0.0 Total Counted 100 Neutrophils % (Manual) 84 H Lymphocytes % (Manual) 14 Monocytes % (Manual) 1 L Eosinophils % (Manual) 1 Platelet Estimate Normal RBC Morphology Normal Sodium 136 Potassium 3.1 L Chloride 104 Carbon Dioxide 20 L Anion Gap 15.1 H BUN < 2 L Creatinine 0.50 L Estimated Creat Clear 135 Estimated GFR 144 Est GFR ( Amer) 174 Glucose 106 H Calcium 9.1 Total Bilirubin 0.4 AST 23 ALT 16 Alkaline Phosphatase 145 H Total Protein 7.0 Albumin 3.8 Globulin 3.2 Albumin/Globulin Ratio 1.2 TSH 1.05 Free T4 Index 3.3 L Thyroxine (T4) 17.4 H T3 Uptake 19 L Urine Color Yellow Urine Appearance Clear Urine pH 7.0 Ur Specific [place] <= 1.005 Urine Protein Negative Urine Glucose (UA) Negative Urine Ketones Negative Urine Blood Negative Urine Nitrate Negative Urine Bilirubin Negative Urine Urobilinogen 0.2 Ur Leukocyte Esterase Negative Urine RBC None Urine WBC None Ur Squamous Epith Cells None Urine Bacteria None Urine Opiates Screen Negative Urine Methadone Screen Negative Ur Barbituates Screen Negative Ur Phencyclidine Scrn Negative Ur Amphetamines Screen Negative U Benzodiazepines Scrn Negative Urine Cocaine Screen Negative U Marijuana (THC) Screen Negative Chlamy pneumoniae PCR Not detected Adenovirus (PCR) Not detected B. pertussis DNA (PCR) Not detected Coronavirus OC43 (PCR) Not detected Coronavirus HKU1 (PCR) Not detected Coronavirus 229E (PCR) Not detected SARS-CoV-2 (PCR) Not detected Coronavirus NL63 (PCR) Not detected Human Metapneumovir PCR Not detected Influenza A (H1) PCR Not detected Influ A (H1N1/09) PCR Not detected Influenza A (H3) PCR Not detected Influenza Type A (PCR) Not detected Influenza Type B (PCR) Not detected M. pneumoniae (PCR) Not detected Parainfluenza 1 (PCR) Not detected Parainfluenza 2 (PCR) Not detected Parainfluenza 3 (PCR) Not detected Parainfluenza 4 (PCR) Not detected RSV (PCR) Not detected Entero/Rhino (PCR) Not detected Group A Strep Rapid Negative DS: Diagnosis Discharge Diagnosis (1) Hypertension affecting : Status: Acute Code(s): O16.9 - Unspecified maternal hypertension, unspecified trimester Qualifiers: Trimester: third trimester Qualified Code(s): O16.3 - Unspecified maternal hypertension, third trimester (2) GERD (gastroesophageal reflux disease): Status: Acute Code(s): K21.9 - Gastro-esophageal reflux disease without esophagitis Qualifiers: Esophagitis presence: esophagitis presence not specified Qualified Code(s): K21.9 - Gastro-esophageal reflux disease without esophagitis (3) Anemia affecting in third trimester: Status: Acute Code(s): O99.013 - Anemia complicating , third trimester (4) Obesity: Status: Acute Code(s): E66.9 - Obesity, unspecified Qualifiers: Obesity type: unspecified obesity type Obesity classification: adult class 3 (BMI >= 40) Serious obesity comorbidity presence: unspecified whether serious comorbidity present Body mass index: BMI 40.0-44.9 Qualified Code(s): E66.01 - Morbid (severe) obesity due to excess calories; Z68.41 - Body mass index [BMI] 40.0-44.9, adult (5) Tachycardia: Status: Acute Code(s): R00.0 - Tachycardia, unspecified Problem details: Appears to be sinus tachycardia. I have no concerns for preeclampsia as the patient's blood pressure is well-controlled given her chronic hypertension. She has had no severe range blood pressures. She also has no proteinuria or lab abnormalities. The patient also does not have a headache unrelieved by Tylenol or other clinical symptoms of severe preeclampsia. She has no symptoms of help syndrome. -We will follow documented hospitalist recs which were discussed as an interdisciplinary team -Will continue nifedipine for the time being although I did discuss with her that we may need to discontinue this medication as it may be what is causing her symptoms -She will follow-up in the office tomorrow and also in radiology for BPP Discharge Plan Disposition Patient Disposition: Home, Self-Care Follow up Plan Prescriptions/Medication Reconciliation: New metoprolol tartrate 25 mg tablet 25 mg PO BID Qty: 60 1RF Continued aspirin [Adult Aspirin Regimen] 81 mg tablet,delayed release (/EC) 81 mg PO DAILY nifedipine 30 mg tablet extended release 30 mg PO DAILY Qty: 30 2RF ondansetron 4 mg tablet,disintegrating 4 mg PO Q6H PRN (Reason: nausea and vomiting) Qty: 30 1RF promethazine 12.5 mg tablet 12.5 mg PO Q6H PRN (Reason: nausea and vomiting) Qty: 20 1RF omeprazole 20 mg capsule,delayed release(DR/EC) 20 mg PO DAILY Qty: 30 2RF Problem Reconciliation Problems Reviewed?: Yes Patient Discharge Instructions ACTIVITY: Continue current activity DIET: regular diet Providers Primary Care Provider: Tracy Ortega Admit Provider: Jed White Attending Provider: Jed White
== END 2023-09-02 17:05 | disposition home or self-care (01) ==
LOC: OBOUT 22:36 → OB 22:36
PROVIDERS: Nurse Practitioner Family; Admitting Provider Nurse Practitioner Obstetrics & Gynecology; PCP Nurse Practitioner; Visit Provider Nurse Practitioner Obstetrics & Gynecology
DX: O99.891 Other specified diseases and conditions complicating pregnancy (principal); K21.9 Gastro-esophageal reflux disease without esophagitis; O16.3 Unspecified maternal hypertension, third trimester; O99.013 Anemia complicating pregnancy, third trimester; O99.613 Diseases of the digestive system complicating pregnancy, third trimester
CPT/HCPCS: 36415; 59025; 80053; 80307; 81001; 84436; 84443; 84479; 85007; 85025; 87430; 87581; 87632; 87635; 87798; 93005; G0378; J7120

== ENCOUNTER 2023-09-03 08:29 | Outpatient (CLI) | payer BC, SELFPAY ==
--- NOTE | 2023-09-03 08:32 | US_ITS ---
PROCEDURE: US OB BIOPHYSICAL PROFILE CLINICAL INDICATION: Hypertension in COMPARISON: US US OB /MATERNAL DETAIL from 06/18/2023 US US OB FOLLOW UP from 08/13/2023 FINDINGS: Transabdominal sonographic images of the uterus were obtained. From her established due date she is 31weeks 5days. The following parameters are obtained: Viable Fetus in the breech presentation with an anterior placenta grade 2. The cervix measures 3.1 cm. Measurements: heart Rate = 124bpm Amniotic fluid index: 11.64cm, MVP 6.31 cm. Qualitative AFV:2 Breathing movements: 2 Gross Body Movements: 2 Tone: 2 Biophysical profile score: 8 No obvious anomalies evident.Kidneys, profile, nasion, bladder, stomach, four-chamber heart, three-vessel cord appear normal. There continues to be mild bilateral renal pelvis dilation measuring 5.9 mm and 6.8 mm. IMPRESSION: 1. Viable fetus in the BREECH presentation with an anterior placenta grade 1. 2. The fluid is within normal limits with an amniotic fluid index of 11.64 cm, MVP 6.31 cm. 3. Biophysical profile is 8/8 with breathing movement and good movement seen. 4. There continues to be bilateral renal pelvis dilation measuring 5.9 mm and 6.8 mm. Suggest follow-up ultrasound with live ammunition inspector. 5. The rest of the limited anatomical scan appears normal. Dictated by: Jed White MD 09/03/2023 10:12 Jed White MD in [place] 09/03/2023 10:12
== END 2023-09-03 23:59 | disposition home or self-care (01) ==
LOC: RAD 08:30
PROVIDERS: PCP Nurse Practitioner; Visit Provider Obstetrics & Gynecology
DX: Z3A.31 31 weeks gestation of pregnancy (principal); O16.3 Unspecified maternal hypertension, third trimester; O14.93 Unspecified pre-eclampsia, third trimester
CPT/HCPCS: 76819

== ENCOUNTER 2023-09-10 09:30 | Outpatient (CLI) | payer BC, SELFPAY ==
--- NOTE | 2023-09-10 09:30 | US_ITS ---
PROCEDURE: US OB BIOPHYSICAL PROFILE CLINICAL INDICATION: chronic hypertension in COMPARISON: US US OB /MATERNAL DETAIL from 06/18/2023 US US OB FOLLOW UP from 08/13/2023 FINDINGS: Transabdominal sonographic images of the uterus were obtained. From her established due date she is 32weeks 5days. The following parameters are obtained: Viable Fetus in the cephalic presentation with and anterior placenta grade 2. Cervix measures 3.1 cm. Measurements: heart Rate = 138bpm Amniotic fluid index: 8.24cm, MVP 4.59 cm. Qualitative AFV:2 Breathing movements: 2 Gross Body Movements: 2 Tone: 2 Biophysical profile score: 8 No obvious anomalies evident.Kidneys, bladder, stomach, four-chamber heart, three-vessel cord appear normal. There is bilateral renal pelvis dilation. 6.6 mm and 5.5 mm. IMPRESSION: 1. Viable fetus in the cephalic presentation with an anterior placenta grade 2. 2. The fetus seems to have an oblique/transverse cephalic presentation. 3. The fluid is within normal limits with an amniotic fluid index of 8.24 cm. MVP 4.59 cm. 4. Biophysical profile is 8/8 with good breathing movement and movement seen. 5. There continues to be bilateral renal pelvis dilation. It is slightly more prominent today measuring 6.6 mm and 5.5 mm. 6. The rest of the limited anatomical scan appears normal Dictated by: Jed White MD 09/10/2023 21:03 Jed White MD in [facility] 09/10/2023 21:03
== END 2023-09-10 23:59 | disposition home or self-care (01) ==
LOC: RAD 09:30
PROVIDERS: PCP Nurse Practitioner; Visit Provider Obstetrics & Gynecology
DX: O10.913 Unspecified pre-existing hypertension complicating pregnancy, third trimester (principal); Z3A.32 32 weeks gestation of pregnancy
CPT/HCPCS: 76819

== ENCOUNTER 2023-09-13 17:22 | Outpatient (CLI) | payer BC, SELFPAY ==
[2023-09-13 17:43] VITALS: BMI 39.7
[2023-09-13 17:47] LABS: Microscopic, Urine URINE MICROSCOPIC (MICROSCOPIC)
[2023-09-13 17:53] LABS: Appearance,Urine CLEAR (Clear); Bilirubin,Urine Negative (Negative); Blood, Urine Negative (Negative); Color,Urine YELLOW (Yellow); Glucose,Urine (UA) Negative (Negative); Ketones,Urine Negative (Negative); Leukocyte Esterase,Urine Negative (Negative); Nitrate,Urine Negative (Negative); PH,Urine 6.5 (5.0-8.5); Protein,Urine Negative (Negative); Specific Gravity, Urine 1.015 (1.005-1.030); Urobilinogen,Urine 0.2 EU/dl (0.2)
[2023-09-13 18:04] VITALS: BP 147/90; PULSE 94; RESP 17; TEMP 36.7; O2SAT 100; BMI 39.7
[2023-09-13 18:04] LABS: Bacteria,Urine Trace /lpf
[2023-09-13 18:05] LABS: Amphetamine/Metha Screen,Urine Negative ng/ml (<1000)
[2023-09-13 18:06] LABS: Barbiturates Screen,Urine Negative ng/ml (<200); Benzodiazepines Screen,Urine Negative ng/ml (<200)
[2023-09-13 18:07] LABS: Cannabinoid Screen,Urine Negative ng/ml (<50)
[2023-09-13 18:08] LABS: Cocaine Screen,Urine Negative ng/ml (<300); Methadone Screen,Urine Negative ng/ml (<300)
[2023-09-13 18:09] LABS: Opiate Screen,Urine Negative ng/ml (<300); Phencyclidine Screen,Urine Negative ng/ml (<25)
== END 2023-09-13 18:15 | disposition home or self-care (01) ==
LOC: OBOUT 17:23 → OB 17:24
PROVIDERS: PCP Nurse Practitioner; Visit Provider Nurse Practitioner Obstetrics & Gynecology
DX: O10.013 Pre-existing essential hypertension complicating pregnancy, third trimester (principal); Z3A.32 32 weeks gestation of pregnancy
CPT/HCPCS: 80307; 81001; G0463

== ENCOUNTER 2023-09-17 07:49 | Outpatient (CLI) | payer BC, SELFPAY ==
[2023-09-17 08:22] VITALS: BP 131/78; PULSE 71; RESP 18; O2SAT 99
[2023-09-17 09:22] VITALS: BP 115/76; PULSE 79; RESP 16
[2023-09-17 10:22] VITALS: BP 119/78; PULSE 80; RESP 16
[2023-09-17 12:22] VITALS: BP 111/75; PULSE 71; RESP 15
--- NOTE | 2023-09-17 13:02 | US_ITS ---
PROCEDURE: US OB BIOPHYSICAL PROFILE CLINICAL INDICATION: chronic hypertension affecting COMPARISON: US US OB /MATERNAL DETAIL from 06/18/2023 US US OB FOLLOW UP from 08/13/2023 US US OB BIOPHYSICAL PROFILE from 09/10/2023 FINDINGS: Transabdominal sonographic images of the uterus were obtained. From her established due date she is 33weeks 5days. The following parameters are obtained: Viable Fetus in the cephalic presentation with an anterior placenta grade 2. Average ultrasound age is 34weeks 1day Estimated weight 2,414g, 5 lb 5 oz. The cervix measures 3.9 cm. Measurements: heart Rate = 135bpm BPD = 33weeks 1day, 26 percentile. HC = 33weeks 5days, 15 percentile. AC = 34weeks 4days, 75 percentile. FL = 35weeks 0 days, 71 percentile. HC/AC is 0.99 FL/BPD is 0.83 FL/AC is 0.22 63 percentile Amniotic fluid index: 7.02cm, MVP 2.95 cm. Qualitative AFV:2 Breathing movements: 2 Gross Body Movements: 2 Tone: 2 Biophysical profile score: 8 No obvious anomalies evident.Kidneys, profile, nasion, bladder, four-chamber heart, three-vessel cord appear normal. There is renal pelvis dilation in the left kidney measuring 8.1 mm. IMPRESSION: 1. Viable fetus in the cephalic presentation with an anterior placenta grade 2. 2. The fluid is within normal limits with an amniotic fluid index of 7.02 cm, MVP 2.95 cm. 3. Biophysical profile is 8/8 with good breathing movement and movement seen. 4. There has been good interval growth with the fetus currently 63rd percentile. 5. Limited anatomical scan appears normal. 6. There is persistent renal pelvis dilation of the left kidney measuring 8.1 mm. Suggest follow-up with bible reader. Dictated by: Jed White MD 09/18/2023 06:57 Jed White MD in [facility] 09/18/2023 06:57
== END 2023-09-17 12:30 | disposition home or self-care (01) ==
LOC: INF 07:50
PROVIDERS: PCP Nurse Practitioner; Visit Provider Obstetrics & Gynecology
DX: O21.9 Vomiting of pregnancy, unspecified; Z3A.34 34 weeks gestation of pregnancy
CPT/HCPCS: 76816; 76819; 96365; 96366; J3411; J7120

== ENCOUNTER 2023-09-20 15:46 | Outpatient (CLI) | payer BC, SELFPAY ==
[2023-09-20 16:19] VITALS: BMI 37.5
[2023-09-20 16:40] LABS: Microscopic, Urine URINE MICROSCOPIC (MICROSCOPIC)
[2023-09-20 16:49] LABS: Appearance,Urine CLEAR (Clear); Bilirubin,Urine Negative (Negative); Blood, Urine Negative (Negative); Color,Urine YELLOW (Yellow); Glucose,Urine (UA) Negative (Negative); Ketones,Urine 1+ (Negative); Leukocyte Esterase,Urine Negative (Negative); Nitrate,Urine Negative (Negative); Protein,Urine TRACE (Negative); Specific Gravity, Urine >= 1.030 (1.005-1.030); Urobilinogen,Urine 0.2 EU/dl (0.2)
[2023-09-20 17:06] LABS: Bacteria,Urine 2+ /lpf; RBC,Urine Occasional #/hpf (0-3); WBC,Urine Occasional #/hpf (0-3)
[2023-09-20 17:18] VITALS: BP 142/92; PULSE 110; RESP 20; TEMP 36.7; O2SAT 100; BMI 37.5
== END 2023-09-20 16:40 | disposition home or self-care (01) ==
LOC: OBOUT 15:48 → OB 15:51
PROVIDERS: PCP Nurse Practitioner; Visit Provider Obstetrics & Gynecology
DX: O10.013 Pre-existing essential hypertension complicating pregnancy, third trimester (principal); Z3A.34 34 weeks gestation of pregnancy
CPT/HCPCS: 81001; 87086; G0463

== ENCOUNTER 2023-09-24 09:25 | Outpatient (CLI) | payer BC, SELFPAY ==
--- NOTE | 2023-09-24 09:30 | US_ITS ---
PROCEDURE: US OB BIOPHYSICAL PROFILE CLINICAL INDICATION: chronic hypertension affecting COMPARISON: US US OB BIOPHYSICAL PROFILE from 09/10/2023 US US OB BIOPHYSICAL PROFILE from 09/17/2023 FINDINGS: Transabdominal sonographic images of the uterus were obtained. From her established due date she is 34weeks 5days. The following parameters are obtained: Viable Fetus in the cephalic presentation with an anterior placenta grade 2. Measurements: heart Rate = 140bpm Amniotic fluid index: 9.45cm, MVP 4.55 cm. Qualitative AFV:2 Breathing movements: 2 Gross Body Movements: 2 Tone: 2 Biophysical profile score: 8 No obvious anomalies evident.Kidneys, profile, bladder, stomach, four-chamber heart, three-vessel cord appear normal. There is mild renal pelvis dilation on one side measuring 7.0 mm. IMPRESSION: 1. Viable fetus in the cephalic presentation with an anterior placenta grade 2. 2. The fluid is within normal limits with an amniotic fluid index of 9.45 cm, MVP 4.55 cm. 3. Biophysical profile is 8/8 with good breathing movement and movement seen. 4. Limited anatomical scan appears normal. 5. There continues to be mild renal pelvis dilation today measuring 7.0 mm in 1 kidney. Dictated by: Jed White MD 09/25/2023 08:01 Jed White MD in [facility] 09/25/2023 08:01
== END 2023-09-24 23:59 | disposition home or self-care (01) ==
LOC: RAD 09:26
PROVIDERS: PCP Nurse Practitioner; Visit Provider Obstetrics & Gynecology
DX: O10.913 Unspecified pre-existing hypertension complicating pregnancy, third trimester (principal); Z3A.34 34 weeks gestation of pregnancy
CPT/HCPCS: 76819

== ENCOUNTER 2023-09-27 17:26 | Outpatient (CLI) | payer BC, SELFPAY ==
[2023-09-27 17:45] VITALS: BP 141/87; PULSE 74; RESP 18; TEMP 36.7; O2SAT 100; BMI 37.4
== END 2023-09-27 18:18 | disposition home or self-care (01) ==
LOC: OBOUT 17:27 → OB 17:28
PROVIDERS: PCP Nurse Practitioner; Visit Provider Nurse Practitioner Obstetrics & Gynecology
DX: O10.013 Pre-existing essential hypertension complicating pregnancy, third trimester (principal); Z3A.35 35 weeks gestation of pregnancy
CPT/HCPCS: G0463

== ENCOUNTER 2023-10-01 12:53 | Outpatient (CLI) | payer BC, SELFPAY ==
--- NOTE | 2023-10-01 12:57 | US_ITS ---
PROCEDURE: US OB BIOPHYSICAL PROFILE CLINICAL INDICATION: Chronic Hypertension COMPARISON: US US OB BIOPHYSICAL PROFILE from 09/17/2023 US US OB BIOPHYSICAL PROFILE from 09/24/2023 FINDINGS: Transabdominal sonographic images of the uterus were obtained. From her established due date she is 35weeks 5days. The following parameters are obtained: Viable Fetus in the cephalic presentation with an anterior placenta grade 2. Average ultrasound age is 36weeks Estimated weight 2,888g, 6 lb 6 oz. Cervix measures 4.45 cm. Measurements: heart Rate = 142bpm BPD = 35weeks 3days, 46 percentile HC = 36weeks 1day, 28 percentile AC = 37weeks 0 days, 89 percentile FL = 35weeks 1day, 29 percentile HC/AC is 0.97 BPD is 0.78 FL/AC is 0.21 Estimated weight: 65 percentile Amniotic fluid index: 9.83cm, MVP 3.79 cm. Qualitative AFV:2 Breathing movements: 2 Gross Body Movements: 2 Tone: 2 Biophysical profile score: 8 No obvious anomalies evident.Kidneys, four-chamber heart, three-vessel cord appear normal. There continues to be mild renal pelvis dilation and today it seems less and measures 5.0 mm. IMPRESSION: 1. Viable fetus in the cephalic presentation with an anterior placenta grade 2. 2. The fluid is within normal limits with an amniotic fluid index of 9.83 cm, MVP 3.79 cm. 3. Biophysical profile is 8/8 with good breathing movement and movement seen. 4. There has been good interval growth with the fetus currently 65th percentile. 5. The previously seen renal pelvis dilation is smaller today and measures 5.0 mm. Previously 8.1 mm. Dictated by: Jed White MD 10/02/2023 11:15 Jed White MD in [facility] 10/02/2023 11:15
== END 2023-10-01 23:59 | disposition home or self-care (01) ==
LOC: RAD 12:54
PROVIDERS: PCP Nurse Practitioner; Visit Provider Obstetrics & Gynecology
DX: O16.3 Unspecified maternal hypertension, third trimester (principal); O99.013 Anemia complicating pregnancy, third trimester; Z3A.36 36 weeks gestation of pregnancy
CPT/HCPCS: 76816; 76819

== ENCOUNTER 2023-10-04 17:06 | Outpatient (CLI) | payer BC, SELFPAY ==
[2023-10-04 17:37] VITALS: BMI 38.2
[2023-10-04 17:43] LABS: Microscopic, Urine URINE MICROSCOPIC (MICROSCOPIC)
[2023-10-04 17:59] LABS: Amphetamine/Metha Screen,Urine Negative ng/ml (<1000)
[2023-10-04 18:00] VITALS: BP 135/88
[2023-10-04 18:00] LABS: Barbiturates Screen,Urine Negative ng/ml (<200)
[2023-10-04 18:01] LABS: Benzodiazepines Screen,Urine Negative ng/ml (<200); Methadone Screen,Urine Negative ng/ml (<300)
[2023-10-04 18:02] LABS: Cannabinoid Screen,Urine Negative ng/ml (<50)
[2023-10-04 18:03] LABS: Cocaine Screen,Urine Negative ng/ml (<300); Opiate Screen,Urine Negative ng/ml (<300)
[2023-10-04 18:04] LABS: Phencyclidine Screen,Urine Negative ng/ml (<25)
[2023-10-04 18:14] VITALS: BP 165/93; PULSE 88; RESP 16; TEMP 36.9; O2SAT 98; BMI 38.2
[2023-10-04 18:38] LABS: Appearance,Urine CLEAR (Clear); Bilirubin,Urine Negative (Negative); Blood, Urine Negative (Negative); Color,Urine YELLOW (Yellow); Glucose,Urine (UA) Negative (Negative); Ketones,Urine Negative (Negative); Leukocyte Esterase,Urine Negative (Negative); Nitrate,Urine Negative (Negative); PH,Urine 7.5 (5.0-8.5); Protein,Urine Negative (Negative); Specific Gravity, Urine 1.015 (1.005-1.030)
[2023-10-04 18:44] LABS: Bacteria,Urine 3+ /lpf
== END 2023-10-04 18:24 | disposition home or self-care (01) ==
LOC: OBOUT 17:07 → OB 17:09
PROVIDERS: PCP Nurse Practitioner; Visit Provider Obstetrics & Gynecology
DX: O10.013 Pre-existing essential hypertension complicating pregnancy, third trimester (principal); Z3A.36 36 weeks gestation of pregnancy
CPT/HCPCS: 80307; 81001; 87086; G0463

== ENCOUNTER 2023-10-08 09:24 | Outpatient (CLI) | payer BC, SELFPAY ==
--- NOTE | 2023-10-08 09:25 | US_ITS ---
PROCEDURE: US OB BIOPHYSICAL PROFILE CLINICAL INDICATION: Chronic Hypertension COMPARISON: US US OB BIOPHYSICAL PROFILE from 09/24/2023 US US OB BIOPHYSICAL PROFILE from 10/01/2023 FINDINGS: Transabdominal sonographic images of the uterus were obtained. From her established due date she is 36weeks 5days. The following parameters are obtained: Viable Fetus in the cephalic presentation with an anterior placenta grade 2. The cervix measures 3.1 cm. Measurements: heart Rate = 139bpm Amniotic fluid index: 8.44cm, MVP 2.76 cm. Qualitative AFV:2 Breathing movements: 2 Gross Body Movements: 2 Tone: 2 Biophysical profile score: 8 No obvious anomalies evident.Kidneys, profile, nasion, stomach, bladder, four-chamber heart, three-vessel cord appear normal. There is persistent renal pelvis dilation today measuring 8.5 mm. IMPRESSION: 1. Viable fetus in the cephalic presentation with an anterior placenta grade 2. 2. The fluid is within normal limits with an amniotic fluid index of 8.44 cm, MVP 2.76 cm. 3. Biophysical profile is 8/8 with good breathing movement and movement seen. 4. There is persistent renal pelvis dilation measuring 8.5 mm. Suggest legal referee follow-up . 5. The rest of the limited anatomical scan appears normal. Dictated by: Jed White MD 10/09/2023 06:40 Jed White MD in [facility] 10/09/2023 06:40
== END 2023-10-08 23:59 | disposition home or self-care (01) ==
LOC: RAD 09:25
PROVIDERS: PCP Nurse Practitioner; Visit Provider Obstetrics & Gynecology
DX: O16.3 Unspecified maternal hypertension, third trimester (principal); O99.013 Anemia complicating pregnancy, third trimester; Z3A.36 36 weeks gestation of pregnancy
CPT/HCPCS: 76819; 86403

== ENCOUNTER 2023-10-11 17:12 | Outpatient (CLI) | payer BC, SELFPAY ==
[2023-10-11 18:07] VITALS: BMI 38.2
[2023-10-11 18:10] VITALS: BMI 38.2
[2023-10-11 18:10] LABS: Microscopic, Urine URINE MICROSCOPIC (MICROSCOPIC)
[2023-10-11 18:27] VITALS: BP 139/76; PULSE 92; RESP 16; TEMP 36.7; O2SAT 99
[2023-10-11 20:17] LABS: Appearance,Urine CLEAR (Clear); Bilirubin,Urine Negative (Negative); Blood, Urine Negative (Negative); Color,Urine YELLOW (Yellow); Glucose,Urine (UA) Negative (Negative); Ketones,Urine Negative (Negative); Leukocyte Esterase,Urine Negative (Negative); Nitrate,Urine Negative (Negative); Protein,Urine Negative (Negative); Urobilinogen,Urine 0.2 EU/dl (0.2)
[2023-10-11 20:29] LABS: Bacteria,Urine 2+ /lpf
== END 2023-10-11 19:50 | disposition home or self-care (01) ==
LOC: OBOUT 17:54 → OB 17:55
PROVIDERS: Nurse Practitioner Obstetrics & Gynecology; PCP Nurse Practitioner; Visit Provider Obstetrics & Gynecology
DX: O10.013 Pre-existing essential hypertension complicating pregnancy, third trimester (principal)
CPT/HCPCS: 81001; 87086; G0463

== ENCOUNTER 2023-10-12 15:05 | Outpatient (CLI) | payer BC, SELFPAY ==
[2023-10-12 15:21] LABS: Basophils % 0.3 % (0.1-2.0); Eosinophils # 0.2 K/mm3 (0.0-0.4); Eosinophils % 1.7 % (0.1-12.0); Hematocrit 35.2 % (37.0-47.0); Hemoglobin 11.4 g/dL (12.2-16.2); Lymphocytes # 1.9 K/mm3 (0.7-4.5); Lymphocytes % 19.4 % (10-50); Mean Corpuscular HGB Conc 32.4 g/dL (31.8-35.4); Mean Corpuscular Hemoglobin 27.2 pg (27.0-31.2); Mean Corpuscular Volume 83.9 fl (81-99); Mean Platelet Volume 9.1 fl (7.4-10.4); Monocytes # 0.7 K/mm3 (0.1-1.0); Monocytes % 6.8 % (1.7-9.3); Neutrophils # 6.9 K/mm3 (1.8-7.8); Neutrophils % 71.8 % (37.0-80.0); Platelet Count 253 K/mm3 (142-424); Red Cell Distribution Width 16.6 % (11.5-17.5); White Blood Count 9.7 K/mm3 (4.8-10.8)
[2023-10-12 16:11] LABS: Chloride 111 mmol/L (98-107); Potassium 4.1 mmoL/L (3.5-5.1); Sodium 137 mmol/L (136-145)
[2023-10-12 16:13] LABS: Blood Urea Nitrogen 3 mg/dl (7-17); Estimated Glomerular Filt Rate 144 ml/min (>60); GFR (African American) 174 ML/MIN (>60)
[2023-10-12 16:14] LABS: Alanine Aminotransferase 14 U/L (12-78); Albumin Level 3.3 g/dl (3.5-5.0); Albumin/Globulin Ratio 1.1 (1.1-1.8); Alkaline Phosphatase 175 U/L (38-126); Anion Gap 11.1 mEq/L (5-15); Aspartate Amino Transferase 23 U/L (14-36); Bilirubin,Total 0.2 mg/dl (0.2-1.3); Calcium 9.2 mg/dl (8.4-10.2); Carbon Dioxide 19 mmol/L (22.0-30.0); Globulin 3.1 g/dL (1.3-3.2); Glucose 80 mg/dl (74-100); Total Protein,Serum 6.4 g/dl (6.3-8.2)
[2023-10-12 17:30] LABS: Lactate Dehydrogenase 198 U/L (313-618); Uric Acid 2.9 mg/dl (2.5-6.2)
[2023-10-12 18:07] LABS: Creatinine,Urine Random 23 mg/dL (Not Estab.)
== END 2023-10-12 23:59 | disposition home or self-care (01) ==
LOC: LAB 15:06
PROVIDERS: PCP Nurse Practitioner; Visit Provider Obstetrics & Gynecology
DX: R00.0 Tachycardia, unspecified (principal); O99.013 Anemia complicating pregnancy, third trimester; O16.3 Unspecified maternal hypertension, third trimester; O21.9 Vomiting of pregnancy, unspecified; D56.3 Thalassemia minor; E66.9 Obesity, unspecified
CPT/HCPCS: 36415; 80053; 82570; 83615; 84156; 84550; 85025

== ENCOUNTER 2023-10-15 09:08 | Outpatient (CLI) | payer BC, SELFPAY ==
[2023-10-15 09:30] VITALS: BP 127/82; PULSE 79; RESP 18; TEMP 36.7; O2SAT 100
[2023-10-15 10:30] VITALS: BP 132/78; PULSE 81
[2023-10-15 11:30] VITALS: BP 127/81; PULSE 78
[2023-10-15 12:30] VITALS: BP 127/74; PULSE 81
[2023-10-15 13:00] VITALS: BP 123/70; PULSE 82
--- NOTE | 2023-10-15 13:05 | US_ITS ---
PROCEDURE: US OB BIOPHYSICAL PROFILE CLINICAL INDICATION: Chronic Hypertension COMPARISON: US US OB FOLLOW UP from 08/13/2023 US OB BIOPHYSICAL PROFILE from 09/03/2023 US OB BIOPHYSICAL PROFILE from 09/10/2023 US OB BIOPHYSICAL PROFILE from 09/17/2023 US OB BIOPHYSICAL PROFILE from 09/24/2023 US OB BIOPHYSICAL PROFILE from 10/01/2023 [facility] OB BIOPHYSICAL PROFILE from 10/08/2023 FINDINGS: Transabdominal sonographic images of the uterus were obtained. From her established due date she is 37weeks 5days. The following parameters are obtained: Viable Fetus in the cephalic presentation with an anterior placenta grade 2. The cervix measures 3.7 cm. Measurements: heart Rate = 138bpm Amniotic fluid index: 8.28cm, MVP 4.53 cm. Qualitative AFV:2 Breathing movements: 2 Gross Body Movements: 2 Tone: 2 Biophysical profile score: 8 No obvious anomalies evident.Kidneys, bladder, four-chamber heart, three-vessel cord appear normal. IMPRESSION: 1. Viable fetus in the cephalic presentation with an anterior placenta grade 2. 2. The fluid is within normal limits with an amniotic fluid index of 8.28 cm, MVP 4.53 cm. 3. Biophysical profile 8/8 with good breathing movement and movement seen. 4. Limited anatomical scan appears normal. Dictated by: Jed White MD 10/16/2023 12:56 Jed White MD in [place] 10/16/2023 12:56
== END 2023-10-15 13:00 | disposition home or self-care (01) ==
LOC: INF 09:09
PROVIDERS: PCP Nurse Practitioner; Visit Provider Obstetrics & Gynecology
DX: O16.3 Unspecified maternal hypertension, third trimester (principal); O99.013 Anemia complicating pregnancy, third trimester; D50.0 Iron deficiency anemia secondary to blood loss (chronic); Z3A.38 38 weeks gestation of pregnancy
CPT/HCPCS: 76819; 96365; 96366; J3411; J7120

== ENCOUNTER 2023-10-18 12:52 | Inpatient (IN) | payer BC, SELFPAY ==
[2023-10-18] VITALS (24 sets, daily range): BP systolic 137–193; BP diastolic 67–107; PULSE 70–103; RESP 18–88; TEMP 36.9; BMI 38.2
--- NOTE | 2023-10-18 13:03 | HMH.PHAINT1 ---
Pharmacy Intervention Comments: MEDICATION RECONCILIATION COMPLETED ON PATIENT USING EXTERNAL FILL HISTORY FROM PHARMACY. -DANNY KIDD, JIMD
[2023-10-18 13:41] LABS: Microscopic, Urine URINE MICROSCOPIC (MICROSCOPIC)
[2023-10-18 13:43] LABS: Appearance,Urine CLEAR (Clear); Bilirubin,Urine Negative (Negative); Blood, Urine Negative (Negative); Color,Urine YELLOW (Yellow); Glucose,Urine (UA) Negative (Negative); Ketones,Urine Negative (Negative); Leukocyte Esterase,Urine Negative (Negative); Nitrate,Urine Negative (Negative); PH,Urine 6.5 (5.0-8.5); Protein,Urine Negative (Negative); Specific Gravity, Urine <= 1.005 (1.005-1.030); Urobilinogen,Urine 0.2 EU/dl (0.2)
[2023-10-18 13:55] LABS: Bacteria,Urine Trace /lpf; Creatinine,Urine Random 38 mg/dL (Not Estab.); Squamous Epithelial Cell,Urine Occasional #/hpf (0-5)
[2023-10-18 13:57] LABS: Barbiturates Screen,Urine Negative ng/ml (<200)
[2023-10-18 13:58] LABS: Activated Partial Thrombo Time 25.5 seconds (22.8-30.6); Amphetamine/Metha Screen,Urine Negative ng/ml (<1000); Benzodiazepines Screen,Urine Negative ng/ml (<200); Fibrinogen 510 mg/dL (229.9-363.5); INR 0.89 (0.9-1.1); Prothrombin Time 10.1 seconds (10.1-12.5)
[2023-10-18 13:59] LABS: Basophils % 0.3 % (0.1-2.0); Cannabinoid Screen,Urine Negative ng/ml (<50); Eosinophils # 0.1 K/mm3 (0.0-0.4); Eosinophils % 1.2 % (0.1-12.0); Hematocrit 35.6 % (37.0-47.0); Hemoglobin 11.6 g/dL (12.2-16.2); Lymphocytes # 1.4 K/mm3 (0.7-4.5); Lymphocytes % 16.4 % (10-50); Mean Corpuscular HGB Conc 32.6 g/dL (31.8-35.4); Mean Corpuscular Hemoglobin 27.7 pg (27.0-31.2); Mean Corpuscular Volume 84.9 fl (81-99); Methadone Screen,Urine Negative ng/ml (<300); Monocytes # 0.7 K/mm3 (0.1-1.0); Monocytes % 7.6 % (1.7-9.3); Neutrophils # 6.4 K/mm3 (1.8-7.8); Neutrophils % 74.5 % (37.0-80.0); Platelet Count 263 K/mm3 (142-424); Red Blood Count 4.19 M/mm3 (4.20-5.40); Red Cell Distribution Width 16.8 % (11.5-17.5); White Blood Count 8.6 K/mm3 (4.8-10.8)
[2023-10-18 14:00] LABS: Cocaine Screen,Urine Negative ng/ml (<300)
[2023-10-18 14:01] LABS: Opiate Screen,Urine Negative ng/ml (<300); Phencyclidine Screen,Urine Negative ng/ml (<25)
[2023-10-18 14:15] LABS: Uric Acid 3.4 mg/dl (2.5-6.2)
[2023-10-18 14:16] LABS: Anion Gap 10.7 mEq/L (5-15); Blood Urea Nitrogen 3 mg/dl (7-17); Calcium 9.7 mg/dl (8.4-10.2); Carbon Dioxide 19 mmol/L (22.0-30.0); Chloride 109 mmol/L (98-107); Creatinine Clearance Estimated 268 mL/min (50-200); Estimated Glomerular Filt Rate 144 ml/min (>60); GFR (African American) 174 ML/MIN (>60); Glucose 88 mg/dl (74-100); Potassium 3.7 mmoL/L (3.5-5.1); Sodium 135 mmol/L (136-145)
[2023-10-18] MEDS: DEXTROSE 5%-LACTATED RINGERS 1,000 ML 125 ML IV (14:20)
[2023-10-18] MEDS: LACTATED RINGERS 1000ML 1,000 ML 500 ML IV (14:20)
[2023-10-18] MEDS: miSOPROStol 100MCG TABLET 25 MCG PO ×2 (14:20→20:28)
[2023-10-18] MEDS: LACTATED RINGERS 1000ML 1,000 ML 250 ML IV (14:21)
[2023-10-18] MEDS: METOPROLOL TARTRATE 50MG TABLET 50 MG PO (20:28)
[2023-10-18] MEDS: SODIUM CHLORIDE 0.9% 25ML BAG 25 ML IV (20:41)
[2023-10-18] MEDS: BUTORPHANOL TARTRATE 1 MG/ML VIAL IV (20:41)
[2023-10-18] MEDS: PROMETHAZINE HCL 25MG/ML 1ML VIAL 12.5 MG IV (20:41)
[2023-10-19] MEDS: miSOPROStol 100MCG TABLET 25 MCG PO (02:28)
[2023-10-19] MEDS: BUTORPHANOL TARTRATE 1 MG/ML VIAL IV (02:32)
[2023-10-19] MEDS: PROMETHAZINE HCL 25MG/ML 1ML VIAL 12.5 MG IV ×2 (02:32→07:48)
[2023-10-19] MEDS: SODIUM CHLORIDE 0.9% 25ML BAG 25 ML IV (02:32)
--- NOTE | 2023-10-19 07:17 | P.PNANES_ITS ---
[facility] Disclaimer: The information contained in this section may have been updated after the patient was seen, as this information can be updated by other users. Medical History Tachycardia GERD (gastroesophageal reflux disease) Pain of both breasts Vitamin D deficiency Vitamin B12 deficiency Thyroid nodule Obesity Anxiety with depression Essential hypertension Surgical History History of cholecystectomy History of tonsillectomy Family History Other Cancer Diabetes Heart attack Hyperlipidemia Hypertension Kidney disease Stroke Thyroid disorder Social History Smoking Status: Never smoker alcohol intake: never substance use type: denies use current occupational status: employed Travel in the last 8 weeks: None do you feel safe at home: Yes victim of physical abuse: No victim of emotional abuse: No victim of sexual abuse: No [facility] Anesthesia Checklist Patient Identification Patient Identification: Verbal (Name & ) Structural Data Admitted From: Inpatient Planned Operative Procedure/s: labor epidural Consent for Planned Operative Procedure(s) Verified: Yes Airway Assessment Mallampati Score:: Class II C-Spine Mobility Assessed: Yes TMJ Mobility Assessed: Yes Dentition: Good Dentition Neurological Assessment Level of Consciousness: Awake, Alert and Appropriate Anesthesia Plan Anesthesia Risk discussed: Yes Anesthesia Plan: Verified ASA Class: II Anesthesia Type: Epidural
[2023-10-19] MEDS: OXYTOCIN/RINGERS LACTATE 30 UNITS/500 ML BAG IV (07:45)
[2023-10-19] MEDS: METOPROLOL TARTRATE 50MG TABLET 50 MG PO ×2 (09:13→21:08)
[2023-10-19] MEDS: SODIUM CHLORIDE 0.9% 10ML FLUSH SYRINGE 10 ML IV (11:03)
[2023-10-19] MEDS: ONDANSETRON 4MG/2ML VIAL 4 MG IV ×2 (11:03→16:38)
[2023-10-19] MEDS: FAMOTIDINE 20MG TABLET 20 MG PO (11:09)
[2023-10-19] MEDS: CEFAZOLIN SODIUM 2 GM in 0.9 % SODIUM CHLORIDE 100 ML IV (12:18)
--- NOTE | 2023-10-19 12:19 | P.HP_ITS ---
History of Present Illness *Admission Date: 10/18/23 *Reason for visit:: induction *History of present illness: Mariaa Rodriguez is a 32yo at 38w2d gestation today who presented to labor and delivery yesterday for scheduled induction of labor secondary to chronic hypertension. Her has been complicated chronic HTN, tachycardia, persistent nausea and vomiting, and obesity. On presentation patient endorsed good movement and denies any leakage of fluid or vaginal bleeding. A+, antibody negative, rubella immune, hepatitis B negative, hepatitis C negative, RPR negative, HIV negative 1 hour GTT: 123 GBS negative PFSH [facility] Disclaimer: The information contained in this section may have been updated after the patient was seen, as this information can be updated by other users. Medical History Tachycardia GERD (gastroesophageal reflux disease) Pain of both breasts Vitamin D deficiency Vitamin B12 deficiency Thyroid nodule Obesity Anxiety with depression Essential hypertension Surgical History History of cholecystectomy History of tonsillectomy Family History Other Cancer Diabetes Heart attack Hyperlipidemia Hypertension Kidney disease Stroke Thyroid disorder Social History (Updated 10/19/23 @ 07:18 by Ab Ovalles CRNA) Smoking Status: Never smoker alcohol intake: never substance use type: denies use current occupational status: employed Travel in the last 8 weeks: None do you feel safe at home: Yes victim of physical abuse: No victim of emotional abuse: No victim of sexual abuse: No Review of Systems Review of Systems Review of systems (narrative): Review of Systems Constitutional: Denies fever, chills, and sweats Eyes: Denies vision change/ pain Respiratory: Denies cough and shortness of breath Cardiovascular: Denies chest pain and lightheadedness Gastrointestinal: denies abdominal pain. Denies nausea, vomiting. Genitourinary: Denies dysuria and incontinence Musculoskeletal: Denies shoulder pain and back pain Neurological: Denies change in speech or headaches Meds Home Medications and Allergies Home Medications Medication Instructions Recorded Confirmed Type aspirin 81 mg tablet,delayed 81 mg PO DAILY 04/30/23 10/18/23 History release (Adult Aspirin Regimen) omeprazole 20 mg capsule,delayed 20 mg PO DAILY #30 caps 08/17/23 10/18/23 Rx release metoprolol tartrate 25 mg tablet 50 mg PO BID 09/07/23 10/18/23 History ondansetron 4 mg disintegrating 4 mg PO Q6HP PRN nausea and 10/18/23 10/18/23 History tablet vomiting promethazine 12.5 mg tablet 12.5 mg PO Q6HP PRN nausea and 10/18/23 10/18/23 History vomiting New Prescriptions to Start Prescriptions: Allergies Allergy/AdvReac Type Severity Reaction Status Date / Time No Known Allergies Allergy Verified 10/15/23 08:59 Exam Data for Last 24 hours Vital signs and Labs for Last 24 Hours: Temp Pulse Resp BP 98.4 F 71 88 H 138/79 10/18/23 14:51 10/18/23 21:54 10/18/23 20:26 10/18/23 21:54 Laboratory Results - last 24 hr 10/18/23 13:25: WBC 8.6, RBC 4.19 L, Hgb 11.6 L, Hct 35.6 L, MCV 84.9, MCH 27.7, MCHC 32.6, RDW 16.8, Plt Count 263, MPV 9.0, Neut % (Auto) 74.5, Lymph % (Auto) 16.4, Sutter % (Auto) 7.6, Eos % (Auto) 1.2, Baso % (Auto) 0.3, Neut # (Auto) 6.4, Lymph # (Auto) 1.4, Sutter # (Auto) 0.7, Eos # (Auto) 0.1, Baso # (Auto) 0.0, PT 10.1, INR 0.89 L, APTT 25.5, Fibrinogen 510 H, Sodium 135 L, Potassium 3.7, Chloride 109 H, Carbon Dioxide 19 L, Anion Gap 10.7, BUN 3 L, Creatinine 0.50 L, Estimated Creat Clear 268, Estimated GFR 144, Est GFR ( Amer) 174, Glucose 88, Uric Acid 3.4, Calcium 9.7, Urine Color Yellow, Urine Appearance Clear, Urine pH 6.5, Ur Specific [place] <= 1.005, Urine Protein Negative, Urine Glucose (UA) Negative, Urine Ketones Negative, Urine Blood Negative, Urine Nitrate Negative, Urine Bilirubin Negative, Urine Urobilinogen 0.2, Ur Leukocyte Esterase Negative, Urine RBC None, Urine WBC None, Ur Squamous Epith Cells Occasional, Urine Bacteria Trace, Urine Creatinine 38, Urine Total Protein 18.0 H, Urine Opiates Screen Negative, Urine Methadone Screen Negative, Ur Barbituates Screen Negative, Ur Phencyclidine Scrn Negative, Ur Amphetamines Screen Negative, U Benzodiazepines Scrn Negative, Urine Cocaine Screen Negative, U Marijuana (THC) Screen Negative, Blood Type A Positive, Antibody Screen Negative I & O for Last 24 hours: Intake & Output 10/16/23 10/17/23 10/18/23 10/19/23 23:59 23:59 23:59 23:59 Weight 230 lb Narrative: General: patient is alert oriented in no acute distress and responds appropriately to questions. HEENT: NCAT, EOMI, moist mucous membranes, neck supple with full ROM Cardiovascular: RRR +S1/S2, no murmurs or rubs Pulmonary: Clear to auscultation bilaterally, nonlabored breathing, symmetric chest rise Abdominal: Gravid abdomen appropriate for gestation. No guarding, rebound, or tenderness noted. Extremities: trace edema, no tenderness or cyanosis noted Skin: Normal turgor, intact, warm. Negative for erythema, pallor, petechia, or lesions Neurologic: Negative for sensory or motor deficit Psychiatric: Normal affect, normal thought process, good judgment and insight, no depression or anxious mood appreciated. *Routine HEENT Exam Head: Present normocephalic and atraumatic Eye: Present EOMI, PERRL and normal accommodation; Absent conjunctival icterus, scleral injection, nystagmus or exophthalmos ENT: Present mucous membranes moist *Routine Respiratory Exam Respiratory: Present CTA bilaterally, normal respiratory effort, able to speak in complete sentences and symmetric chest movement; Absent accessory muscle use, decreased breath sounds, rales, respiratory distress, wheezes, distant breath sounds or diminished air movement *Routine Cardiovascular Exam Cardiovascular: Present RRR, Normal S1 and Normal S2; Absent murmur or gallop *Routine Abdominal Exam Abdominal: Present soft and normoactive bowel sounds; Absent tenderness, distended, rebound or guarding *Routine Rectal Exam Rectal:: deferred *Routine Genitalia Exam Genitalia:: normal female Assessment and Plan *Assessment and plan (1) Hypertension affecting : Status: Acute Qualifiers: Trimester: third trimester Qualified Code(s): O16.3 - Unspecified maternal hypertension, third trimester Category: Medical Code(s): O16.9 - Unspecified maternal hypertension, unspecified trimester (2) GERD (gastroesophageal reflux disease): Status: Acute Qualifiers: Esophagitis presence: esophagitis presence not specified Qualified Code(s): K21.9 - Gastro-esophageal reflux disease without esophagitis Category: Medical Code(s): K21.9 - Gastro-esophageal reflux disease without esophagitis (3) Obesity: Status: Acute Qualifiers: Obesity type: unspecified obesity type Obesity classification: adult class 3 (BMI >= 40) Serious obesity comorbidity presence: unspecified whether serious comorbidity present Body mass index: BMI 40.0-44.9 Qualified Code(s): E66.01 - Morbid (severe) obesity due to excess calories; Z68.41 - Body mass index [BMI] 40.0-44.9, adult Category: Medical Code(s): E66.9 - Obesity, unspecified (4) Tachycardia: Status: Acute Category: Medical Code(s): R00.0 - Tachycardia, unspecified (5) Nausea and vomiting during : Status: Acute Category: Medical Code(s): O21.9 - Vomiting of , unspecified (6) Alpha thalassemia silent carrier: Status: Acute Category: Medical Code(s): D56.3 - Thalassemia minor (7) Obesity (BMI 35.0-39.9 without comorbidity): Status: Acute Category: Medical Code(s): E66.9 - Obesity, unspecified (8) : Status: Acute Qualifiers: Weeks of gestation: 13 weeks Qualified Code(s): Z3A.13 - 13 weeks gestation of Category: Medical Code(s): Z34.90 - Encounter for supervision of normal , unspecified, unspecified trimester (9) Vitamin D deficiency: Status: Acute Category: Medical Code(s): E55.9 - Vitamin D deficiency, unspecified (10) Vitamin B12 deficiency: Status: Acute Category: Medical Code(s): E53.8 - Deficiency of other specified B group vitamins (11) Anxiety with depression: Status: Acute Category: Medical Code(s): F41.8 - Other specified anxiety disorders (12) Essential hypertension: Status: Acute Category: Medical Code(s): I10 - Essential (primary) hypertension Plan - Monitor vitals - Admit to L&D for induction of labor - External FHR and TOCO monitor - GBS neg/ Blood type: A+ - Hemoglobin: 11.6, Plt: 263 - Plan for epidural anesthesia - Anticipate delivery of male : unknown Monitor the patient's morning she states that her contractions have been extremely painful and she no longer desires a vaginal delivery We are able to get her contractions under control. She elects for a primary c esarean delivery. Reviewed with the patient this was completely elective in nature. Her cervix at this time was 3/100/-2. Offered pt AROM and she declined. Patient continues to decline the labor at this time. Her Pitocin will be turned off and she will have her epidural replaced that she has pain management until the time of delivery. Reviewed the risk of to include bowel injury, bladder injury, prolonged recovery, injury to the neurovascular bundles. Discussed the risk of hemorrhage and blood transfusion. Patient consented to blood transfusion if deemed medically necessary. Discussed the risk of intraoperative and postoperative infection to include a pelvic infection/abscess and a superficial skin infection. Patient will receive 2 g of Ancef preoperatively for infection prophylaxis. Discussed the very rare risk of hysterectomy if bleeding was unable to be controlled surgically. Patient voiced understanding. Discussed the increased risk for complications if the patient desired a vaginal delivery in the future. Patient states that she has completed childbearing. Patient voiced understanding of all risk and desire to proceed with primary elective delivery
--- OUTSIDE RECORDS SUMMARY | 2023-10-19 12:31 | XMS_ITS ---
Author Name Unknown Organization [facility] Address [address] [place] [address] Care Team Providers Care Extension Supervisor Name Role Phone Mai Gaviria Unavailable [phone] REASON FOR VISIT lmp 01/24 10/31 Encounters Encounter Location Date Provider Diagnosis [facility] [address] [place] [address] 04/07/2023 Mai Gaviria Plan Of Treatment No Information Progress Notes * Yee BRIGGSeDOB: 2 (32 yo F)Acc No.[id number]:04/07/2023 Progress Note Patient:?Mariaa BRIGGS Provider:?Mai Gaviria CNM :1990???Age:32 Y???Sex:Female D ate:04/07/2023 Address:[address], [place] [address] Subjective: * Chief Complaints: * ???1. Lmp 01/24 10/31. * HPI: ???MARCELO Statement:?MARCELO Statement?:.? * Medical History:? Objective: * Vitals:? Assessment: Plan: * Treatment: * Billing Information: * Visit Code:? * Procedure Codes:? * Electronic signature of Elda Gaviria CNM on 10/19/2023 at 12:31 PM EDT Sign off status: Pending Visit Status:?R/S (Reschedul ed) * Provider:?Mai Gaviria CNM Date:?2023 Generated for Aura troy/Jasmin/eTransmitting on:?10/19/2023 12:31 PM EDT History and Physical Notes * HPI (History of Present Illness) Category Sub-Category Detail Notes MARCELO Statement MARCELO Statement :
--- OUTSIDE RECORDS SUMMARY | 2023-10-19 12:31 | XMS_ITS ---
Author Name Unknown Organization [facility] Address [address] [place] [address] Care Team Providers Care Conciliation Court Judge Name Role Phone Mai Gaviria Unavailable [phone] REASON FOR VISIT LMP 01/24 BROCK 10/31 Encounters Encounter Location Date Provider Diagnosis [facility] [address] [facility] [address] [place] [address] 04/07/2023 Mai Gaviria Plan Of Treatment No Information Progress Notes * Yee BRIGGSeDOB: 2 (32 yo F)Acc No.[id number]:04/07/2023 Progress Note Patient:?Mariaa BRIGGS Provider:?Mai Gaviria CNM :1990???Age:32 Y???Sex:Female D ate:04/07/2023 Address:[address] [facility] Subjective: * Chief Complaints: * ???1. LMP 01/24 BROCK 10/31. * Medical History:? Objective: * Vitals:? Assessment: Plan: * Treatment: * Billing Information: * Visit Code:? * Procedure Codes:? * Electronic signature of Elda Gaviria CNM on 10/19/2023 at 12:31 PM EDT Sign off status: Pending Visit Status:?R/S (Reschedul ed) * Provider:?Mai Gaviria CNM Date:?2023 Generated for Pauli woodrow/Jasmin/eTransmitting on:?10/19/2023 12:31 PM EDT
--- OUTSIDE RECORDS SUMMARY | 2023-10-19 12:32 | XMS_ITS | Patient Health Record ---
Author Name Unknown Organization [facility] Address [address] [place] [address] Care Team Providers Care Canvassing Manager Name Role Phone Mai Gaviria Unavailable [phone] Reason For Referral No Information Encounters Encounter Location Date Provider Diagnosis [facility] [address] [place] [address] 03/26/2023 Mai Gaviria Encounter to determine viability of , single or unspecified fetus O36.80X0 Assessments Encounter Date Diagnosis (ICD Code) Assessment Notes Treat ment Notes Treatment Clinical Notes 03/26/2023 Encounter to determine viability of , single or unspecified fetus (ICD-10 - O36.80X0) Plan Of Treatment Future Test Test Name Order Date *US OB Complete Transabdominal/Vaginal 1"
--- OUTSIDE RECORDS SUMMARY | 2023-10-19 12:32 | XMS_ITS ---
Author Name Unknown Organization [facility] Address [address] [place] [address] Care Team Providers Care Separating Machine Operator Name Role Phone Mai Gaviria Unavailable [phone] Encounters Encounter Location Date Provider Diagnosis [facility] [address] [place] [address] 03/26/2023 Mai Gaviria Encounter to determine viability of , single or unspecified fetus O36.80X0 Assessments Encounter Date Diagnosis (ICD Code) Assessment Notes Treat ment Notes Treatment Clinical Notes 03/26/2023 Encounter to determine viability of , single or unspecified fetus (ICD-10 - O36.80X0) Plan Of Treatment Future Test Test Name Order Date *US OB Complete Transabdominal/Vaginal 1 Progress Notes * Yee BRIGGSeDOB: 2 (32 yo F)Acc No.[id number]:03/26/2023 Patient:?Mariaa BRIGGS :1990???Age:32 Y???Sex:Female Address:[address], [place], [address] Subjective: * Chief Complaints: * ??? * Medical History:? * Surgical History:? * Hospitalization/Major Diagno stic Procedure:? * Medications:? Objective: * Vitals:? * Physical Examination:? Assessment: * Assessment: 1.?Encounter to determine fe javy viability of , single or unspecified fetus - O36.80X0? Plan: * Treatment: * Procedure Codes:? * true * Date:? Generated for Aura troy/Jasmin/Javier on:?10/19/2023 12:31 PM EDT
[2023-10-19] MEDS: miSOPROStoL 200 MCG TABLET 1000 MCG RC (13:20)
[2023-10-19 13:30] VITALS: BP 142/83; PULSE 88; RESP 16; TEMP 36.1; O2SAT 100
--- NOTE | 2023-10-19 13:37 | EXP.OP.NOTE ---
Date of procedure: 10/19/23 Pre-op Diagnosis:: 1. 38 weeks 2days gestation, [place] 2. Chronic Hypertension 3. Desires elective delivery 4. GBS negative 5. Rh Positive 6. Obesity 7. Alpha thalassemia carrier 8. Tachycardia 9. Persistent nausea and vomiting Post-op Diagnosis:: 1. 38 weeks 2days gestation, [place] 2. Chronic Hypertension 3. Desires elective delivery 4. GBS negative 5. Rh Positive 6. Obesity 7. Alpha thalassemia carrier 8. Tachycardia 9. Persistent nausea and vomiting Procedure performed:: Primary Delivery Surgeon:: Carolin Tee DO Network Mgr(s):: Juan Manuel Fink DO SECONDARY HISTORY TEACHER:: Michael Schaffer Anesthesia: epidural Estimated blood loss (mL): 200 Operative findings:: 1. Live viable male : Kathy. Weight: 6pounds 6ounces. Apgars 8 and 9 at 1 and 5 minutes respectively Operative note:: Medications: 2 g of Ancef and 1000mcg of rectal cytotec Summary: Procedure explained in its entirety. The patient was counseled on the risks and benefits of section including bleeding, vascular injury, infection, and injury to the surrounding structures. Hemorrhage requiring life saving blood transfusion resulting in blood born viral infection or allergic reaction was explained and the patient consented to blood transfusion. Possible need for further operative measures prolonging recovery time and hospitalization reviewed to include hysterectomy. Procedure explained in its entirety and patient had no further questions. Consented to procedure. The patient was taken back to the operating room where adequate epidural anesthesia was obtained. Pneumatic compression stockings applied to lower extremities. Ancef 2g was given for infection prophylaxis. She was placed in the dorsal supine position Urinary catheter was placed and found to be draining clear urine. The patient was prepped and draped in sterile fashion. Anesthesia was tested and and found to be adequate. A Pfannenstiel skin incision was made with the scalpel. Subcutaneous bleeding vessels were cauterized with the bovie. The incision was taken down to the fascia with the bovie. The fascia was knicked in the midline and sharply extended laterally. The superior aspect of the fascia was grasped with Jesika clamps and the rectus muscle was taken down with the Bovie. The rectus muscle was sharply dissected from the midline with Mayos. This process was repeated inferiorly. The rectus muscles were in the midline, peritoneum was identified and entered bluntly. Roberto Carlos O retractor was placed and the bladder was noted to be out of the operative field. A bladder flap was created with Metzenbaum scissors and Singaporean pickups. The lower uterine segment was easily identified, sharply incised, and entered bluntly with the surgeon's index finger. Incision was then extended in a superior and inferior fashion by blunt separation. Membranes were ruptured revealing clear fluid. The fetus was in cephalic presentation. The head was carefully elevated out of the pelvis. Fundal pressure was applied when head was brought into incision. The infants head was delivered without difficulty. The shoulder and body followed without complication. Delivery occurred at 1247. The mouth and nose were suctioned with a bulb. The umbilical cord was clamped and cut. Infant was taken to warmer for evaluation by the investment manager. Cord blood was collected. The placenta was delivered via fundal massage and found to be normal and intact. IV Pitocin was initiated. Inside of the uterus was gently cleared of blood and clots with lap sponge. The hysterotomy was closed with 0 Vicryl in a running locked fashion. The lower uterine segment was visualized and noted to be hemostatic. The uterus remained slightly atonic, although significantly improved and the bleeding was minimal. Decision to give rectal cytotec as pt was not a great candidate for methergine. The vesicouterine peritoneum was repaired with 2-0 vicryl. The posterior aspect of the uterus was cleared of blood clot with a damp lap sponge. The gutters were inspected bilaterally and cleared of blood and clots with lap sponges. The uterine incision was reinspected and hemostasis noted. Roberto Carlos O retractor was removed. The peritoneum was reapproximated using a 2-0 Monocryl in a nonlocked running fashion. The fascia was closed in a running nonlocked fashion using 0 Vicryl x2 meeting right of midline. Fascia was noted as not having gaps or defects. The subcutaneous fat was closed with 2-0 Monocryl interrupted sutures x3. Skin was closed with the INSORB suture in a subcuticular fashion. Patient tolerated the procedure well and all counts were correct x3, per nursing. Patient will receive tap blocks and then be transported to the OB PACU for recovery and bonding. Condition: stable Disposition: PACU Specimens:: Placenta Complications:: None
[2023-10-19 13:40] VITALS: BP 137/81; PULSE 97; RESP 16; O2SAT 100
--- NOTE | 2023-10-19 13:46 | EXP.ANES.I ---
[facility] Anesthesia Record Part I Anesthesia Record I Intake, IV Amount: 2,000 Hydration: Adequate Estimated blood loss (mL): 200 Urine output (mL): 100 Blood Products used (#): none Blood Pressure: 142/83 SaO2: 100 Pulse Rate: 88 Airway Patency: Patent Respiratory Rate: 16 Temperature: 97 F Patient is:: Awake and Stable Stable to PACU at:: 13:30
[2023-10-19 13:47] VITALS: BP 142/83; PULSE 88; RESP 16; TEMP 36.1; O2SAT 100
[2023-10-19 13:50] VITALS: BP 164/67; PULSE 89; RESP 16; O2SAT 100
[2023-10-19 14:00] VITALS: BP 137/65; PULSE 97; RESP 16; O2SAT 99
[2023-10-19] MEDS: OXYTOCIN/RINGERS LACTATE 30 UNITS/500 ML BAG 999 UNITS IV (14:16)
--- NOTE | 2023-10-19 14:20 | EXP.ANES.II ---
[facility] Anesthesia Record Part II Anesthesia Record Part II Discharge Time: 14:00 Destination: Obstetric PACU nurse assessment reviewed?: Yes Patient Condition:: Good Anesthesia Complications:: None Swallowing reflex intact?: Yes Airway Patency: Patent Cyanosis?: No Blood Pressure: 137/65 SaO2: 99 Respiratory Rate: 16 Pulse Rate: 97 Temperature: 97 F Mental Status: Alert & Oriented Pain level:: 0 Nausea and/or vomitting:: None Intake, IV Amount: 0 Hydration: Adequate
[2023-10-19 14:21] VITALS: BP 137/65; PULSE 97; RESP 16; TEMP 36.1; O2SAT 99
[2023-10-19] MEDS: OXYTOCIN/RINGERS LACTATE 30 UNITS/500 ML BAG 40 UNITS IV (14:38)
[2023-10-19] MEDS: ACETAMINOPHEN 500MG TAB 1000 MG PO ×2 (15:18→21:07)
[2023-10-19] MEDS: KETOROLAC 30MG/ML VIAL 30 MG IV ×2 (15:19→21:08)
[2023-10-19] MEDS: PRENATAL MULTIVITAMIN W/IRON 1 EACH PO (16:38)
[2023-10-19] MEDS: OXYCODONE 5MG IMMEDIATE RELEASE TABLET 5 MG PO ×2 (17:12→18:43)
[2023-10-19] MEDS: PANTOPRAZOLE 40MG TABLET 40 MG PO (21:08)
[2023-10-20] MEDS: OXYCODONE 5MG IMMEDIATE RELEASE TABLET 5 MG PO ×2 (00:39→16:56)
[2023-10-20] MEDS: ACETAMINOPHEN 500MG TAB 1000 MG PO ×4 (03:16→20:53)
[2023-10-20] MEDS: KETOROLAC 30MG/ML VIAL 30 MG IV ×2 (03:17→09:32)
[2023-10-20 07:49] LABS: Hemoglobin 10.1 g/dL (12.2-16.2); Mean Corpuscular HGB Conc 36.2 g/dL (31.8-35.4); Mean Corpuscular Hemoglobin 31.2 pg (27.0-31.2); Mean Corpuscular Volume 86.3 fl (81-99); Red Blood Count 3.24 M/mm3 (4.20-5.40); White Blood Count 11.2 K/mm3 (4.8-10.8)
[2023-10-20 07:50] LABS: Basophils % 0.2 % (0.1-2.0); Eosinophils # 0.1 K/mm3 (0.0-0.4); Eosinophils % 0.5 % (0.1-12.0); Lymphocytes # 1.9 K/mm3 (0.7-4.5); Lymphocytes % 17.2 % (10-50); Mean Platelet Volume 8.5 fl (7.4-10.4); Monocytes # 0.7 K/mm3 (0.1-1.0); Monocytes % 5.8 % (1.7-9.3); Neutrophils # 8.6 K/mm3 (1.8-7.8); Neutrophils % 76.3 % (37.0-80.0); Platelet Count 196 K/mm3 (142-424)
[2023-10-20 08:18] VITALS: BP 128/69; PULSE 78; RESP 18; TEMP 36.4; O2SAT 99
[2023-10-20] MEDS: METOPROLOL TARTRATE 50MG TABLET 50 MG PO ×2 (09:31→20:54)
--- NOTE | 2023-10-20 11:49 | EXP.PN ---
Subjective *Date: 10/20/23 *Time: 11:49 Interval history: Mariaa is a G1, P1 day #1 following a primary delivery at 38 weeks and 2 days gestation. Routine delivery and course thus far. She is doing well, sitting up in bed, and visiting with family this morning. She has taken a shower and is feeling well -Reports pain is well-controlled. She does have some incisional pain which is improved with Oxycodone -Reports she is tolerating p.o. without nausea or vomiting. -Reports her lochia is scant. -Ambulating, voiding difficulty or dysuria. Denies chest pain shortness of breath or pain in her legs. No further complaints at this time. Exam Data for Last 24 hours Vital signs and Labs for Last 24 Hours: Temp Pulse Resp BP Pulse Ox O2 Del Method 97.6 F 78 18 128/69 99 Room Air 10/20/23 08:18 10/20/23 08:18 10/20/23 08:18 10/20/23 08:18 10/20/23 08:18 10/20/23 08:18 Laboratory Results - last 24 hr 10/20/23 06:12: WBC 11.2 H D, RBC 3.24 L, Hgb 10.1 L, Hct 28.0 L, MCV 86.3, MCH 31.2, MCHC 36.2 H, RDW 17.0, Plt Count 196 D, MPV 8.5, Neut % (Auto) 76.3, Lymph % (Auto) 17.2, Rice % (Auto) 5.8, Eos % (Auto) 0.5, Baso % (Auto) 0.2, Neut # (Auto) 8.6 H, Lymph # (Auto) 1.9, Rice # (Auto) 0.7, Eos # (Auto) 0.1, Baso # (Auto) 0.0 I & O for Last 24 hours: Intake & Output 10/17/23 10/18/23 10/19/23 10/20/23 23:59 23:59 23:59 23:59 Intake Total 1999 Balance 1999 Weight 230 lb Narrative: General: patient is alert oriented in no acute distress and responds appropriately to questions. Appears to be in minimal pain. Walking around the room and doing well HEENT: NCAT, EOMI, moist mucous membranes, neck supple with full ROM Cardiovascular: RRR +S1/S2, no murmurs or rubs Pulmonary: Clear to auscultation bilaterally, nonlabored breathing, symmetric chest rise Abdominal: Fundus below the umbilicus, firm, and tenderness appropriate for the period. Extremities: trace edema, no tenderness or cyanosis noted Skin: Normal turgor, intact, warm. Negative for erythema, pallor, petechia, or lesions. no signs of infection. incison is covered with bandage, encouraged removal . Neurologic: Negative for sensory or motor deficit Psychiatric: Normal affect, normal thought process, good judgment and insight, no depression or anxious mood appreciated. Assessment and Plan *Assessment and plan (1) Tachycardia: Status: Acute Category: Medical Code(s): R00.0 - Tachycardia, unspecified (2) Hypertension affecting : Status: Acute Qualifiers: Trimester: third trimester Qualified Code(s): O16.3 - Unspecified maternal hypertension, third trimester Category: Medical Code(s): O16.9 - Unspecified maternal hypertension, unspecified trimester (3) Nausea and vomiting during : Status: Acute Category: Medical Code(s): O21.9 - Vomiting of , unspecified (4) Alpha thalassemia silent carrier: Status: Acute Category: Medical Code(s): D56.3 - Thalassemia minor (5) Obesity (BMI 35.0-39.9 without comorbidity): Status: Acute Category: Medical Code(s): E66.9 - Obesity, unspecified (6) : Status: Acute Qualifiers: Weeks of gestation: 13 weeks Qualified Code(s): Z3A.13 - 13 weeks gestation of Category: Medical Code(s): Z34.90 - Encounter for supervision of normal , unspecified, unspecified trimester (7) GERD (gastroesophageal reflux disease): Status: Acute Qualifiers: Esophagitis presence: esophagitis presence not specified Qualified Code(s): K21.9 - Gastro-esophageal reflux disease without esophagitis Category: Medical Code(s): K21.9 - Gastro-esophageal reflux disease without esophagitis (8) Vitamin D deficiency: Status: Acute Category: Medical Code(s): E55.9 - Vitamin D deficiency, unspecified (9) Vitamin B12 deficiency: Status: Acute Category: Medical Code(s): E53.8 - Deficiency of other specified B group vitamins (10) Obesity: Status: Acute Qualifiers: Obesity type: unspecified obesity type Obesity classification: adult class 3 (BMI >= 40) Serious obesity comorbidity presence: unspecified whether serious comorbidity present Body mass index: BMI 40.0-44.9 Qualified Code(s): E66.01 - Morbid (severe) obesity due to excess calories; Z68.41 - Body mass index [BMI] 40.0-44.9, adult Category: Medical Code(s): E66.9 - Obesity, unspecified (11) Anxiety with depression: Status: Acute Category: Medical Code(s): F41.8 - Other specified anxiety disorders Plan Stable. POD#1 s/p PLTCS -Doing well. VSS. Serial lochia and fundal checks. -Continue with perineal ice packs for discomfort -Hemoglobin: 11.6--> 10.1 -A+/antibody negative -Contraception: undecided -Follow-up 2 weeks for routine visit -Dispo: home in 1-3 days pending mother/infant status #Chronic Hypertension -well controlled with medications. continue to follow closely
[2023-10-20] MEDS: IBUPROFEN 400 MG TABLET 800 MG PO ×2 (15:49→23:51)
[2023-10-20 16:31] VITALS: BP 135/69; PULSE 82; RESP 18; TEMP 36.3; O2SAT 99
[2023-10-20 16:43] LABS: Rapid Plasma Reagin Ab Titer Non Reactive titer (NonRea<1:1)
[2023-10-20] MEDS: PRENATAL MULTIVITAMIN W/IRON 1 EACH PO (16:56)
[2023-10-20 20:53] VITALS: BP 136/70; PULSE 71; RESP 16; TEMP 36.8; O2SAT 98
[2023-10-20] MEDS: PANTOPRAZOLE 40MG TABLET 40 MG PO (20:53)
[2023-10-20] MEDS: SENNA 8.6MG TABLET 8.6 MG PO (23:51)
[2023-10-21] MEDS: ACETAMINOPHEN 500MG TAB 1000 MG PO ×2 (02:54→08:49)
[2023-10-21 04:15] VITALS: BP 107/57; PULSE 69; RESP 18; TEMP 36.6; O2SAT 97
[2023-10-21 08:49] VITALS: BP 131/65; PULSE 81; RESP 18; TEMP 36.5; O2SAT 98
[2023-10-21] MEDS: METOPROLOL TARTRATE 50MG TABLET 50 MG PO (08:49)
[2023-10-21] MEDS: IBUPROFEN 400 MG TABLET 800 MG PO (08:50)
--- NOTE | 2023-10-21 10:12 | EXP.DC.SUM ---
General Admission date:: 10/18/23 Discharge date: 10/21/23 HPI HPI HPI: POD # 2 s/p PLTCS Feeling well. Pain controlled. Formula feeding. Lochia is appropriate. Voiding without difficulty and passing flatus. Tolerating regular diet. Denies fever/chills, chest pain and shortness of breath. No headaches, vision changes, lightheadedness/dizziness. Admits to mild lower extremity swelling but states this is normal for her because of CHTN. Ambulating well ad mi. Hospital Course Hospital Course Hospital Course: Mariaa Rodriguez is a 32yo at 38w2d gestation who presented to labor and delivery for scheduled induction of labor secondary to chronic hypertension. Her has been complicated by chronic HTN, tachycardia, persistent nausea and vomiting, and obesity. On presentation patient endorsed good movement and denies any leakage of fluid or vaginal bleeding. Patient progressed to 3/-2. She requested elective at that time. She reported that she couldn't get comfortable and did not want to proceed with vaginal delivery any longer. She had an elective primary on 10/19/23. She delivered a live male baby, Kathy, 6 lb 6 oz. Apgars 8 and 9 at 1 and 5 minutes respectively. EBL 200 mL. She did well /postoperatively. Pain controlled. Formula feeding. Light lochia. Voiding without difficulty and passing flatus. Tolerating regular diet. Denies fever/chills, chest pain and shortness of breath. No headaches, dizziness/lightheadedness or vision changes. Vital signs stable, afebrile. Heart regular rate and rhythm. Lungs clear to auscultation. Abdomen soft, nontender. She had +1 bilateral lower extremity swelling. No calf pain. Ambulating well ad mi. Normal hospital course. She was discharged to home on POD # 2 with instructions to follow-up in the office in 2 weeks or sooner if needed. Exam Data for Last 24 hours Vital signs and Labs for Last 24 Hours: Temp Pulse Resp BP Pulse Ox O2 Del Method 97.7 F 81 18 131/65 98 Room Air 10/21/23 08:49 10/21/23 08:49 10/21/23 08:49 10/21/23 08:49 10/21/23 08:49 07/25/24 08:49 Laboratory Results - last 24 hr 10/18/23 13:25: RPR Titer Non reactive I & O for Last 24 hours: Intake & Output 10/18/23 10/19/23 10/20/23 10/21/23 23:59 23:59 23:59 23:59 Intake Total 1999 Balance 1999 Weight 230 lb Constitutional Constitutional: no acute distress and cooperative *Routine HEENT Exam Head: Present normocephalic and atraumatic Eye: Absent conjunctivae pink ENT: Present mucous membranes moist *Routine Neck Exam Neck: Present full ROM *Routine Respiratory Exam Respiratory: Present CTA bilaterally and normal respiratory effort *Routine Cardiovascular Exam Cardiovascular: Present RRR *Routine Abdominal Exam Abdominal: Present soft and normoactive bowel sounds; Absent tenderness or distended Comments: Uterine fundus firm and below umbilicus, pfannenstiel incision clean/dry/intact with steri strips in place *Routine Rectal Exam Patient deferred: visual exam *Routine Exam Patient deferred: external exam *Routine Extremities Exam Extremities: Present edema (+1 bilateral lower extremity swelling) and full ROM; Absent calf tenderness *Routine Neurological Exam Neurological: Present alert, moving all extremities and normal speech Routine Psychiatric Exam Psychiatric: Present normal affect and cooperative Results Data Completed and Pending Labs on day of discharge: Labs from last 24 hours 10/18/23 13:25 RPR Titer Non reactive DS: Diagnosis Discharge Diagnosis (1) S/P : Status: Acute Code(s): Z98.891 - History of uterine scar from previous surgery Problem details: Elective (2) 38 weeks gestation of : Status: Acute Code(s): Z3A.38 - 38 weeks gestation of (3) Hypertension affecting : Status: Acute Code(s): O16.9 - Unspecified maternal hypertension, unspecified trimester Qualifiers: Trimester: third trimester Qualified Code(s): O16.3 - Unspecified maternal hypertension, third trimester (4) Tachycardia: Status: Acute Code(s): R00.0 - Tachycardia, unspecified (5) Nausea and vomiting during : Status: Acute Code(s): O21.9 - Vomiting of , unspecified (6) Alpha thalassemia silent carrier: Status: Acute Code(s): D56.3 - Thalassemia minor (7) Obesity (BMI 35.0-39.9 without comorbidity): Status: Acute Code(s): E66.9 - Obesity, unspecified (8) GERD (gastroesophageal reflux disease): Status: Acute Code(s): K21.9 - Gastro-esophageal reflux disease without esophagitis Qualifiers: Esophagitis presence: esophagitis presence not specified Qualified Code(s): K21.9 - Gastro-esophageal reflux disease without esophagitis (9) Vitamin D deficiency: Status: Acute Code(s): E55.9 - Vitamin D deficiency, unspecified (10) Vitamin B12 deficiency: Status: Acute Code(s): E53.8 - Deficiency of other specified B group vitamins (11) Anxiety with depression: Status: Acute Code(s): F41.8 - Other specified anxiety disorders (12) Acute blood loss anemia: Status: Acute Code(s): D62 - Acute posthemorrhagic anemia Meds Home Medications and Allergies Home Medications ?Medication ?Instructions ?Recorded ?Confirmed ?Type omeprazole 20 mg capsule,delayed 20 mg PO DAILY #30 caps 08/17/23 10/18/23 Rx release metoprolol tartrate 25 mg tablet 50 mg PO BID 09/07/23 10/18/23 History ondansetron 4 mg disintegrating 4 mg PO Q6HP PRN nausea and 10/18/23 10/18/23 History tablet vomiting ibuprofen 400 mg tablet 800 mg (2 x 400 mg) PO Q8H #40 tabs 10/21/23 Rx oxycodone 5 mg tablet 5 mg PO Q4-6H PRN Moderate Pain 10/21/23 Rx (4-6) #20 tabs New Prescriptions to Start Prescriptions: Ayde Farley oxycodone Ayde Fink Allergies Allergy/AdvReac Type Severity Reaction Status Date / Time No Known Allergies Allergy Verified 10/15/23 08:59 Discharge Plan Disposition Patient Disposition: Home, Self-Care Condition: Good Discharge Order Discharge Orders: Discharge Order (Routine); Ordered 10/21/23 Ordered By: Ayde Fink Follow up Plan Follow up with: Carolin Tee DO [Staff Physician] - 11/02/23 10:45 am Prescriptions/Medication Reconciliation: New ibuprofen 400 mg Tablet 800 mg PO Q8H Qty: 40 0RF oxycodone 5 mg Tablet 5 mg PO Q4-6H PRN (Reason: Moderate Pain (4-6)) Qty: 20 0RF Continued metoprolol tartrate 25 mg tablet 50 mg PO BID omeprazole 20 mg capsule,delayed release(DR/EC) 20 mg PO DAILY Qty: 30 2RF ondansetron 4 mg tablet,disintegrating 4 mg PO Q6HP PRN (Reason: nausea and vomiting) Discontinued aspirin [Adult Aspirin Regimen] 81 mg tablet,delayed release (DR/EC) 81 mg PO DAILY promethazine 12.5 mg tablet 12.5 mg PO Q6HP PRN (Reason: nausea and vomiting) Problem Reconciliation Problems Reviewed?: Yes Patient Discharge Instructions ACTIVITY: Limited activity DIET: continue same diet and regular diet Additional Instructions: Discharge: 1. Take 800 mg Ibuprofen every 8 hours as needed for pain. You can also take 500-1000 mg of Tylenol in between doses, every 6-8 hours. If pain persists you can take Oxycodone 5 mg, 1 tablet every 4-6 hours or more as needed. 2. Nothing in the vagina for 6 weeks - no intercourse, douching or tampons. No tub baths/hot tubs or swimming pools - Drink plenty of fluids. - No strenuous activity or driving until released by your doctor. - Don't lift anything heavier than your . 3. Reasons to return to L&D or call On-Call doctor - fever (greater than 100.4) - heavy vaginal bleeding (soaking through 1 pad in less than 2 hours) - vaginal discharge (malodorous and/or purulent) - severe headaches not resolved by medication or rest and leg tenderness/edema 4. depression/blues - Normal to feel anxious/overwhelmed for first 2 weeks - Talk to your doctor if: severe anxiety, trouble bonding with baby, withdrawing from other family members, thoughts of harming yourself or others Patient Instructions: Depression, Hemorrhage, DI for , DI for Pre-eclampsia, [facility] Post Discharge Instructions Print Language: Italian Providers Primary Care Provider: Tracy Ortega Provider: Carolin Tee Attending Provider: Ayde Fink
== END 2023-10-21 14:58 | disposition home or self-care (01) | DRG 788 ==
PROVIDERS: Admitting Provider Obstetrics & Gynecology; PCP Nurse Practitioner; Visit Provider Obstetrics & Gynecology
DX: O99.214 Obesity complicating childbirth (principal); Z3A.38 38 weeks gestation of pregnancy; Z37.0 Single live birth; O99.344 Other mental disorders complicating childbirth; F32.A Depression, unspecified; F41.9 Anxiety disorder, unspecified; O99.62 Diseases of the digestive system complicating childbirth; K21.9 Gastro-esophageal reflux disease without esophagitis; O10.92 Unspecified pre-existing hypertension complicating childbirth; Z23 Encounter for immunization
CPT/HCPCS: 59514; 36415; 59025; 80048; 80307; 81001; 82570; 84156; 84550; 85025; 85384; 85610; 85730; 86593; 86850; 94761; C9290; G0283; J0595; J1885; J2405; J2550; J3010; J7120

== ENCOUNTER 2024-01-04 09:25 | Outpatient (CLI) | payer BC, SELFPAY ==
[2024-01-04 19:26] LABS: Alanine Aminotransferase 34 U/L (12-78); Albumin Level 4.2 g/dl (3.5-5.0); Albumin/Globulin Ratio 1.4 (1.1-1.8); Alkaline Phosphatase 95 U/L (38-126); Anion Gap 10.2 mEq/L (5-15); Aspartate Amino Transferase 30 U/L (14-36); Bilirubin,Total 0.6 mg/dl (0.2-1.3); Blood Urea Nitrogen 9 mg/dl (7-17); Calcium 9.2 mg/dl (8.4-10.2); Carbon Dioxide 24 mmol/L (22.0-30.0); Chloride 107 mmol/L (98-107); Chol/HDL Ratio 3.3 (1-3.5); Cholesterol 217 mg/dl (140-200); Estimated Glomerular Filt Rate 116 ml/min (>60); GFR (African American) 140 ML/MIN (>60); Globulin 2.9 g/dL (1.3-3.2); Glucose 81 mg/dl (74-100); HDL Cholesterol 66 mg/dl (40-60); Potassium 4.2 mmoL/L (3.5-5.1); Sodium 137 mmol/L (136-145); Total Protein,Serum 7.1 g/dl (6.3-8.2); Triglycerides 65 mg/dl (30-150); VLDL Cholesterol 13 mg/dL (0-40)
[2024-01-04 19:36] LABS: Basophils % 0.8 % (0.1-2.0); Eosinophils # 0.1 K/mm3 (0.0-0.4); Hematocrit 39.9 % (37.0-47.0); Hemoglobin 12.9 g/dL (12.2-16.2); Lymphocytes # 1.4 K/mm3 (0.7-4.5); Mean Corpuscular HGB Conc 32.2 g/dL (31.8-35.4); Mean Corpuscular Hemoglobin 26.3 pg (27.0-31.2); Mean Corpuscular Volume 81.5 fl (81-99); Mean Platelet Volume 8.6 fl (7.4-10.4); Monocytes # 0.3 K/mm3 (0.1-1.0); Monocytes % 6.7 % (1.7-9.3); Neutrophils # 2.5 K/mm3 (1.8-7.8); Neutrophils % 58.4 % (37.0-80.0); Platelet Count 282 K/mm3 (142-424); Red Blood Count 4.89 M/mm3 (4.20-5.40); Red Cell Distribution Width 15.3 % (11.5-17.5); White Blood Count 4.3 K/mm3 (4.8-10.8)
[2024-01-04 19:37] LABS: Direct LDL Cholesterol 116.09 mg/dL (100-129)
[2024-01-04 19:42] LABS: 25-OH Vitamin D, Total 20.1 ng/mL (30-100)
[2024-01-04 19:59] LABS: Thyroid Stimulating Hormone 0.76 uIU/mL (0.465-4.68)
[2024-01-04 20:18] LABS: Vitamin B12 292 pg/mL (239-931)
== END 2024-01-04 23:59 | disposition home or self-care (01) ==
LOC: LAB.DROPOF 01-05 09:40
PROVIDERS: PCP Nurse Practitioner; Visit Provider Nurse Practitioner
DX: E55.9 Vitamin D deficiency, unspecified (principal); I10 Essential (primary) hypertension; F41.8 Other specified anxiety disorders; E53.8 Deficiency of other specified B group vitamins; K21.9 Gastro-esophageal reflux disease without esophagitis; E66.01 Morbid (severe) obesity due to excess calories; Z68.35 Body mass index [BMI] 35.0-35.9, adult
CPT/HCPCS: 80050; 80053; 80061; 82306; 82607; 83036; 84443; 85025

== ENCOUNTER 2024-06-06 15:50 | Outpatient (CLI) | payer BC, SELFPAY ==
[2024-06-06 19:49] LABS: Basophils # 0.1 K/mm3 (0-0.2); Basophils % 0.9 % (0.1-2.0); Eosinophils # 0.2 K/mm3 (0.0-0.4); Eosinophils % 2.7 % (0.1-12.0); Hematocrit 36.6 % (37.0-47.0); Hemoglobin 10.9 g/dL (12.2-16.2); Lymphocytes # 1.8 K/mm3 (0.7-4.5); Lymphocytes % 32.5 % (10-50); Mean Corpuscular HGB Conc 29.8 g/dL (31.8-35.4); Mean Corpuscular Hemoglobin 22.8 pg (27.0-31.2); Mean Corpuscular Volume 76.4 fl (81-99); Monocytes # 0.5 K/mm3 (0.1-1.0); Monocytes % 8.5 % (1.7-9.3); Neutrophils # 3.1 K/mm3 (1.8-7.8); Neutrophils % 55.2 % (37.0-80.0); Platelet Count 328 K/mm3 (142-424); Red Blood Count 4.79 M/mm3 (4.20-5.40); White Blood Count 5.5 K/mm3 (4.8-10.8)
[2024-06-06 21:18] LABS: Alanine Aminotransferase 19 U/L (12-78); Albumin Level 4.4 g/dl (3.5-5.0); Albumin/Globulin Ratio 1.7 (1.1-1.8); Alkaline Phosphatase 82 U/L (38-126); Anion Gap 11.3 mEq/L (5-15); Aspartate Amino Transferase 22 U/L (14-36); Bilirubin,Total 0.2 mg/dl (0.2-1.3); Blood Urea Nitrogen 7 mg/dl (7-17); Calcium 9.2 mg/dl (8.4-10.2); Carbon Dioxide 23 mmol/L (22.0-30.0); Chloride 108 mmol/L (98-107); Estimated Glomerular Filt Rate 97 ml/min (>60); GFR (African American) 117 ML/MIN (>60); Globulin 2.6 g/dL (1.3-3.2); Glucose 81 mg/dl (74-100); Potassium 4.3 mmoL/L (3.5-5.1); Sodium 138 mmol/L (136-145)
[2024-06-06 21:34] LABS: 25-OH Vitamin D, Total < 12.8 ng/mL (30-100)
[2024-06-06 21:50] LABS: Thyroid Stimulating Hormone 0.96 uIU/mL (0.465-4.68)
[2024-06-06 22:09] LABS: Vitamin B12 292 pg/mL (239-931)
[2024-06-06 22:23] LABS: Microalbumin/Creatinine Ratio 78.5
[2024-06-06 22:31] LABS: Creatinine,Urine Random 91 mg/dL (Not Estab.)
[2024-06-06 23:30] LABS: Hemoglobin A1C 5.3 % (4.0-6.0)
== END 2024-06-06 23:59 | disposition home or self-care (01) ==
LOC: LAB.DROPOF 06-08 10:08
PROVIDERS: PCP Nurse Practitioner; Visit Provider Nurse Practitioner
DX: I10 Essential (primary) hypertension (principal); F41.8 Other specified anxiety disorders; E66.01 Morbid (severe) obesity due to excess calories; Z68.41 Body mass index [BMI] 40.0-44.9, adult; E53.8 Deficiency of other specified B group vitamins; E55.9 Vitamin D deficiency, unspecified; F53.0 Postpartum depression
CPT/HCPCS: 80053; 82043; 82306; 82570; 82607; 83036; 84443; 85025

== ENCOUNTER 2024-10-20 08:52 | Outpatient (CLI) | payer MEDICAID, SELFPAY ==
--- OUTSIDE RECORDS SUMMARY | 2023-10-30 05:00 | XMS_ITS ---
Author Organization [facility] Address [address] [facility] [address] [place] [address] Care Team Providers Care Donor Relations Officer Name Role Phone MehreenrubiMai Unavailable [phone] Migration, Provider Unavailable Unavailable Encounters Encounter Location Date Provider Diagnosis [facility] [address] [place] [address] [address] [place] [address] 10/30/2023 Provider Migration Plan Of Treatment No Information Progress Notes * Yee RODRIGUEZeDOB: 2 (33 yo F)Acc No.[id number]:10/30/2023 Patient: Mariaa RIGGS :1990 A ge:32 Y S ex:Female Address:[address], [place], [address] * * Date:
--- OUTSIDE RECORDS SUMMARY | 2024-10-20 08:56 | XMS_ITS | Clinical Summary ---
Author Organization [facility] Address [address] [place] [address] Care Team Providers Care Cnc Lathe Machine Operator Name Role Phone Jens Marrufo D.O. Primary Care Provider [phone] Source Comments [facility] is fully rolled out with thefollowing exceptions:General Clinical Research [facility] Social History Tobacco Use Types Packs/Day Years Used Date Smoking Tobacco: Never Assessed Comments Unknown Sex and Gender Information Value Date Recorded Sex Assigned at Not on file Legal Sex Female 5:10 AM EST Gender Identity Not on file Sexual Orientation Not on file Plan of Treatment Health Maintenance Due Date Last Done Comments MMR IMMUNIZATION (1 of 1 - S tandard series) 12/12/1992 DTAP/Tdap/Td IMMUNIZATION (1 - Tdap) 12/12/1998 VARICELLA IMMUNIZATION (1 of 2 - 13+ 2-dose series) 12/12/2004 HEPATITIS B IMMUNIZATION (1 of 3 - 19+ 3-dose series) 12/12/2010 COVID-19 Vaccine ( - 2023-2 5 season) 2023 AMB SEASONAL FLU VACCINE (#1) 11/27/2024 HIB IMMUNIZATION Aged Out No longer e ligible based on patient's age to complete this topic HPV IMMUNIZATION Aged Out No longer e ligible based on patient's age to complete this topic IPV IMMUNIZATION Aged Out No longer e ligible based on patient's age to complete this topic MCV4 IMMUNIZATION Aged Out No longer eligible based on patient's age to complete this topic MENINGOCOCCAL B VACCINE Aged Out No l onger eligible based on patient's age to complete this topic PNEUMOCOCCAL IMMUNIZATION Aged Out No longer eligible based on patient's age to complete this topic Respiratory Syncytial Virus (RSV) <20mo Aged Out No longer eligible b ased on patient's age to complete this topic Insurance [facility] Address: [facility] [id number] [place] [address] Care Teams Cnc Lathe Machine Operator Relationship Specialty Start Date End Date Jens Marrufo D.O. [address] [place] [address] PCP - General 07/25/08
--- OUTSIDE RECORDS SUMMARY | 2024-10-20 08:56 | XMS_ITS | Clinical Summary ---
Author Organization [facility] Address [facility] [place] [address] Phone Care Team Providers Care Deputy Building Guard Name Role Phone Unavailable Unavailable Conditions or Problems No information available. Medications No information available. Medications Administered No information available. Allergies, Adverse Reactions, Alerts No information available. Results No information available. Plan of Care No information available. Procedures No information available. Vital Signs No information available. Immunizations No information available. Advance Directives No information available.
--- OUTSIDE RECORDS SUMMARY | 2024-10-20 08:56 | XMS_ITS | Clinical Summary ---
Author Organization [facility] Address [facility] [place] [address] Care Team Providers Care Collator Operator Name Role Phone Historical, Dalila Primary Care Provider Joslyn vailable Source Comments This information has been disclosed to you from confidential records protectedfrom disclosure by state law. You shall make no further disclosure of thisinformation without the specific, written, and informed release of theindividual to whom it pertains, or as otherwise permitted by law. A generalauthorization for the release of medical or other information is not sufficientfor the purposes of therelease of HIV test results or diagnoses. [id number] Social History Tobacco Use Types Packs/Day Years Used Date Smoking Tobacco: Never Assessed Comments Unknown Sex and Gender Information Value Date Recorded Sex Assigned at Not on file Legal Sex Female 4:24 PM EST Gender Identity Not on file Sexual Orientation Not on file Plan of Treatment Not on file Care Teams Collator Operator Relationship Specialty Start Date End Date Dalila Hicks PCP - General 11/05/08
--- OUTSIDE RECORDS SUMMARY | 2024-10-20 08:56 | XMS_ITS | Clinical Summary ---
Author Organization [facility] Address [address] [place] [address] Phone Care Team Providers Care Museum Specialist Name Role Phone Raymond Tovar DPM Unavailable Unavailab le Allergies Active Allergy Reactions Criticality Noted Date Comments Lisinopril Itching Low 03/17/2016 Medications * This document contains information received from the source organization and may not represent a complete record from that organization. tretinoin (RETIN-A) 0.025 % Top CreamIndications :Acne, unspecified acne type Apply topically nightly. 45 g 3 02/10/20 16 Active medroxyPROGESTER one (DEPO-PROVERA) 150 mg/mL IM SuspensionIndica tions:SOB (shortness of breath),Irregula r menses,Essential hypertension Inject into the muscle once. Active metoprolol succinate (TOPROL-XL) 25 mg Oral Tablet Sustained Release 24 hrIndications:SO B (shortness of breath),Irregula r menses Take 1 Tab by mouth daily. 30 Tab 11 08/25/19 18 Active fUROsemide (LASIX) 20 mg Oral TabletIndication s:SOB (shortness of breath),Irregula r menses Take 1 Tab by mouth daily as needed. 30 Tab 6 08/25/19 18 Active medroxyPROGESTER one (DEPO-PROVERA) 150 mg/mL IM Syringe INJECT 1 ML INTRAMUSCULARLY ONCE FOR ONE DOSE 1 Syringe 4 10/26/19 19 Active buPROPion (WELLBUTRIN) 100 mg Oral Tablet Take by mouth 2 times daily. Active nebivoloL (BYSTOLIC) 10 mg Oral Tablet Take 10 mg by mouth daily. Active diclofenac (VOLTAREN) 75 mg Oral Tablet, Delayed Release (E.C.) Take 1 Tablet by mouth 2 times daily. 30 Tablet 01/13/20 22 Active Hospital, Clinic, or Other Facility Administered Medication Ordered Dose Route Frequency Start Date End Date Status medroxyPROGESTERone (DEPO-PROVERA) injection 150 mgIndications:Encounter for Depo-Provera contraception 150 mg IM EVERY 90 DAYS 11/10/2017 Active Active Problems Problem Noted Date Diagnosed Date SOB (shortness of breath) 02/16/2017 Irregular menses 08/17/2011 Contraceptive surveillance, unspecified 12/05/19 11 Essential hypertension Surgical History Surgery Date Site/Laterality Comments CHOLECYSTECTOMY TOE SURGERY TONSILLECTOMY Medical History Medical History Date Comments Heartburn Hypertension Family History Medical History Relation Name Comments Early Mother Relation Name Status Comments Mother Social History Tobacco Use Types Packs/Day Years Used Date Smoking Tobacco: Never Smokeless Tobacco: Never Tobacco Cessation:Counseling Given: Not Answered Alcohol Use Standard Drinks/Week Comments Yes 0 (1 standard drink = 0.6 oz pur e alcohol) rarely PHQ-2 Answer Date Recorded PHQ-2 Score 0 08/17/2018 Comments No Sex and Gender Information Value Date Recorded Sex Assigned at Not on file Legal Sex Female 10:42 AM EDT Gender Identity Not on file Sexual Orientation Not on file Obstetrics History Last Filed Vital Signs Vital Sign Reading Time Taken Comments Blood Pressure 148/82 12/17/2017 9:27 AM EDT Pulse 134 12/17/2017 9:27 AM EDT Temperature 36.8 C (98.3 F) 12/17/2017 9:27 AM EDT Respiratory Rate 16 12/17/2017 9:27 AM EDT Oxygen Saturation 99% 12/17/2017 9:27 AM EDT Inhaled Oxygen Concentration - - Weight 107.5 kg (237 lb) 01/12/2022 10:30 AM EDT Height 167.6 cm (5' 6 ) 01/12/2022 10:30 AM EDT Body Mass Index 38.25 01/12/2022 10:30 AM EDT Plan of Treatment Health Maintenance Due Date Last Done Comments DTaP/TDaP/Td (5 - Tdap) 12/21/2002 12/21/19 03, 10/23/1996, 04/20/1995, Additional history exists Pap Smear 11/27/2017 11/27/2014 Annual Wellness Exam 02/02/2018 02/02/2017, 01/03/2016, 05/23/2013 Cervical Cancer Screening 12/12/2021 HPV/Pap Cotest 12/12/2021 COVID-19 Vaccine ( season) 2023 11/10/2021, 02/24/2021, 05/21/2020, Additional history exists Influenza Vaccine (#1) 2024 , 01/18/2020, 02/02/2017 (Declined), Additional history exists Hepatitis B Vaccine Completed 04/20/1995, 08/04/1994, 04/19/1992 Meningococcal B Vaccine Aged Out No l onger eligible based on patient's age to complete this topic Pneumococcal Vaccine 0-49 Aged Out No longer eligible based on patient's age to complete this topic Goals Goal Patient Goal Type Associated Problems Recent Progress Patient-Stated? Author Blood Pressure < 140/90 Blood Pressure 148/82(2017 9:27 AM EDT) No Chiara Thornton LPN Maintain a healthy diet, exercise regularly and maintain an ideal body weight General No Karen Joyce CCMA Insurance [address] [place], [place] [id number] [employer] PPO Care Teams Museum Specialist Relationship Specialty Start Date End Date Raymond Tovar DPM Solution Make Up Operator-Primary Podiatric Medicine 05/01/14
--- OUTSIDE RECORDS SUMMARY | 2024-10-20 08:57 | XMS_ITS | Patient Health Record ---
Author Organization [facility] Address [address] [place] [address] Care Team Providers Care Microwave Supervisor Name Role Phone Mai Gaviria Unavailable [phone] Migration, Provider Unavailable Unavailable Reason For Referral No Information Social History Social History Sexual History: Social Info Question Answer Notes Sexual History Had sex in the past 12 months (vaginal, oral, or anal)? Yes Drugs/Alcohol: Social Info Question Answer Notes Drugs Have you used drugs other than those for medical reasons in the past 12 months? No Alcohol Screen Did you have a drink containing alcohol in the past year? Yes Points 0 Interpretation Negative Tobacco Use: Social Info Question Answer Notes Tobacco Use/Smoking Are you a former smoker Tobacco use other than smoking: Are you an other tobac co user? No Encounters Encounter Location Date Provider Diagnosis [facility] [address] [place] [address] 10/30/2023 Provider Migration Plan Of Treatment No Information
--- OUTSIDE RECORDS SUMMARY | 2024-10-20 08:57 | XMS_ITS | Patient Health Record ---
Author Organization [facility] [address] [facility] [address] [place] [id number] Care Team Providers Care Solid Waste Facility Supervisor Name Role Phone Jewell Briones Primary Care Provider [phone] Allergies No Known Allergies Reason For Referral No Information Medications Medication SIG (Take, Route, Frequency, Duration) Notes Start Date End Date Status B-12 1000 MCG 1 tab(s) orally once a day 07/31/2020 Active dexAMETHasone 4 MG 1 tab(s) orally 2 ti mes a day; Duration: 5 days 07/29/2021 Active Furosemide 20 MG 1 tab(s) orally once a day as needed for swelling; Duration: 30 day(s) 07/29/2021 Active buPROPion HCl ER (XL) 300 MG 1 tab(s) orally every 24 hours 11/25/2020 Active ARIPiprazole 5 MG 1 tab(s) orally once a day; Duration: 30 day(s) 06/06/2021 Active Vitamin D3 125 MCG (5000 UT) 1 cap(s) orally once a day 07/31/2020 Not-Taking Nebivolol HCl 10 MG 1 tab(s) orally once a day; Duration: 30 day(s) 06/06/2021 Active amLODIPine Besylate 10 MG 1 tab(s) orally once a day; Duration: 30 day(s) 09/11/2020 Active Depo-Provera 150 MG/ML as directed intramuscularly once Active Vitamin D-3 125 MCG (5000 UT) 1 tab(s) orally once a week 06/10/2021 Active Immunizations Vaccine Route Administration Date Status Comme nts xGardasil Unknown 12/18/2013 Administered xGardasil Unknown 03/20/2014 Administered MMR Unknown 08/04/1994 Administered MMR Unknown 10/20/1996 Administered Fluzone Quad (6months&older) IM Intramuscular 01/18/2020 Administered DT, 7 YEARS OR OLDER Unknown 12/20/2002 Administered COVID 19 Moderna Unknown 04/23/2020 Administered COVID 19 Moderna Unknown 05/21/2020 Administered COVID 19 Moderna Unknown 02/24/2021 Administered Problems Problem Type SNOMED Code ICD Code Onset Dates Problem Status W/U Status Risk Notes Problem Vitamin D deficiency (15351245) Vitamin D deficiency (E55.9) Active confirmed Problem Vitamin B12 deficiency (913148061) Vitamin B12 deficiency (E53.8) Active confirmed Problem Essential hypertension (56320742) Essential hypertension (I10) Active confirmed Problem Anxiety (12721901) Anxiety (F41.9) Active confirmed Problem Thyroid nodule (734889506) Thyroid nodule (E04.1) Active confirmed Problem Transient insomnia (261226322) Transient insomnia (F51.02) Active confirmed Problem Thyromegaly (9383917) Thyromegaly (E01.0) Active confirmed Problem Anxiety depression (313086000) Anxiety with depression (F41.8) Active confirmed Plan Of Treatment No Information Insurance Providers Payer Name Payer Address Payer Phone Subscriber Number Group Number Insured Name Patient Relationship to Insured Coverage Start Date Coverage End Date [employer] [facility] [id number] [place] [address] [phone] [id number] Mariaa Rodriguez Self - patient is the insured Medications Administered Medication Instructions Date of Administration Dosage Notes B-12 12/01/2019 1 mL B-12 12/08/2019 1 mL B-12 12/15/2019 1 mL B-12 12/22/2019 1 mL celestone 04/25/2020 1 mL depo provera 08/02/2020 1 mL depo provera 10/16/2020 1 mL depo provera 04/16/2021 1 mL Medical (General) History Medical History History ICD Code anxiety hypertension Surgical History Surgery Date(Month/Year) tonsillectomy Gallbladder removed 2007
--- OUTSIDE RECORDS SUMMARY | 2024-10-20 08:57 | XMS_ITS | Encounter Summary ---
Author Organization [facility] Address [address] [place] [address] Care Team Providers Care Junior Designer Name Role Phone Jose Rojo MD Primary Care Provider [phone] Encounter Details Date Type Department Care Team (Late st Contact Info) Description 03/17/2016 Orders Only Laboratory [address] [place] [address] [place] [address] Rob Walker MD [address] [facility] [place] [address] [place] [address] Oligomenorrhea (Primary Dx) Social History Tobacco Use Types Packs/Day Years Used Date Smoking Tobacco: Never Smokeless Tobacco: Never Alcohol Use Standard Drinks/Week Comments No 0 (1 standard drink = 0.6 oz pur e alcohol) Comments Unknown Sex and Gender Information Value Date Recorded Sex Assigned at Not on file Legal Sex Female 8:38 AM EDT Gender Identity Not on file Sexual Orientation Not on file documented as of this encounter Plan of Treatment Not on file documented as of this encounter Visit Diagnoses Diagnosis Oligomenorrhea- Primary [place] or infrequent menstruation documented in this encounter Care Teams Junior Designer Relationship Specialty Start Date End Date Jose Rojo MD [employer] [place] [id number] PCP - General Internal Medicine 12/30/15 documented as of this encounter
--- OUTSIDE RECORDS SUMMARY | 2024-10-20 08:57 | XMS_ITS | Clinical Summary ---
Author Organization [facility] Address [address] [place] [address] Care Team Providers Care Dry Yard Worker Name Role Phone Jose Rojo MD Primary Care Provider [phone] Allergies Active Allergy Reactions Criticality Noted Date Comments Lisinopril Itching Low 03/17/2016 Medications LORazepam (ATIVAN) 0.5 mg tablet TAKE 1 TAB BY MOUTH EVERY 8 HOURS NEEDED FOR ANXIETY 0 6 Active carvedilol (COREG) 25 mg TabletIndications: Resistant hypertension Take 1 Tab by mouth 2 times daily (with meals). 60 Tab 12 6 Active omeprazole (PRILOSEC) 20 mg capsule Take 20 mg by mouth daily. Active chlorthalidone (HYGROTEN) 25 mg tablet Take 1 Tab by mouth daily. 30 Tab 3 7 Active potassium chloride (KDUR) 10 mEq tablet Take 1 Tab by mouth daily. 30 Tab 3 7 Active valsartan (DIOVAN) 320 mg Tablet Take 1 Tab by mouth daily. 30 Tab 6 7 Active norethindrone (MICRONOR) 0.35 mg TabletIndications: Encounter for surveillance of contraceptive pills Take 1 Tab by mouth daily. Take all pills in the pack 84 Tab 4 7 Active Active Problems Problem Noted Date Diagnosed Date Anxiety 08/04/2016 Obesity (BMI 30-39.9) 06/25/2016 DANIELA (obstructive sleep apnea) 06/25/2016 Essential hypertension 01/23/2016 Resolved Problems Problem Noted Date Diagnosed Date Resolved Date Resistant hypertension 03/17/201608/06 HTN (hypertension), malignant 01/02/2016 08/06/2016 Family History Medical History Relation Name Comments High Blood Pressure Father Heart Attack Mother Relation Name Status Comments Father Alive Mother Social History Tobacco Use Types Packs/Day Years Used Date Smoking Tobacco: Never Smokeless Tobacco: Never Alcohol Use Standard Drinks/Week Comments No 0 (1 standard drink = 0.6 oz pur e alcohol) Comments Unknown Sex and Gender Information Value Date Recorded Sex Assigned at Not on file Legal Sex Female 8:38 AM EDT Gender Identity Not on file Sexual Orientation Not on file Last Filed Vital Signs Vital Sign Reading Time Taken Comments Blood Pressure 140/100 08/06/2016 1:52 PM EDT Pulse 74 08/06/2016 1:51 PM EDT Temperature 36.4 C (97.6 F) 08/04/2016 10:38 AM EDT Respiratory Rate 12 08/04/2016 10:38 AM EDT Oxygen Saturation 98% 08/04/2016 10:38 AM EDT Inhaled Oxygen Concentration - - Weight 98.4 kg (217 lb) 08/06/2016 1:51 PM EDT Height 165.1 cm (5' 5 ) 08/06/2016 1:51 PM EDT Body Mass Index 36.11 08/06/2016 1:51 PM EDT Plan of Treatment Health Maintenance Due Date Last Done Comments Tetanus Vaccination (Every 1 0 Years) 12/12/2009 Lipid Screening 2011 Cervical Cancer Screening 12/12/2012 COVID-19 Vaccine (2023-2 5 season) 2023 Depression Screening 03/29/2024 Influenza Vaccination (#1) 2024 HPV Vaccine Aged Out No longer eligi ble based on patient's age to complete this topic Care Teams Dry Yard Worker Relationship Specialty Start Date End Date Jose Rojo [place] [address] [place] [address] PCP - General Internal Medicine 12/30/15
[2024-10-22 13:09] LABS: Cortisol,AM 10.7 ug/dL (6.2-19.4)
== END 2024-10-20 23:59 | disposition home or self-care (01) ==
LOC: LAB 08:55
PROVIDERS: PCP Nurse Practitioner
DX: R63.2 Polyphagia (principal); R53.83 Other fatigue; R41.89 Other symptoms and signs involving cognitive functions and awareness
CPT/HCPCS: 82533

== ENCOUNTER 2024-12-17 20:47 | Emergency (ER) | payer SELFPAY ==
--- OUTSIDE RECORDS SUMMARY | 2023-10-30 05:00 | XMS_ITS ---
Author Organization [facility] Address [address] [facility] [address] [place] [address] Care Team Providers Care Professor Of Business Name Role Phone MehreenrubiMai Unavailable [phone] Migration, Provider Unavailable Unavailable Encounters Encounter Location Date Provider Diagnosis [facility] [address] [place] [address] [address] [place] [address] 10/30/2023 Provider Migration Plan Of Treatment No Information Progress Notes * Yee RODRIGUEZeDOB: 2 (34 yo F)Acc No.[id number]:10/30/2023 Patient: Mariaa RIGGS :1990 A ge:32 Y S ex:Female Address:[address], [place], [address] * * Date:
[2024-12-17] VITALS (10 sets, daily range): BP systolic 126–181; BP diastolic 77–112; PULSE 80–105; RESP 7–25; TEMP 37.1; O2SAT 98–100; BMI 35.4
--- OUTSIDE RECORDS SUMMARY | 2024-12-17 21:19 | XMS_ITS | Clinical Summary ---
Author Organization [facility] Address [address] [place] [address] Phone Care Team Providers Care Lead Mechanic Name Role Phone Raymond Tovar DPM Unavailable [...] HPV/Pap Cotest 12/12/2021 COVID-19 Vaccine ( season) 2024 11/10/2021, 02/24/2021, 05/21/2020, Additional history exists Influenza [...] weight General No Karen Joyce CCMA Insurance [address] [place], [place] [id number] CRISTIAN PPO Care Teams Lead Mechanic Relationship Specialty Start Date End Date Raymond Tovar DPM Banking Services Officer-Primary Podiatric Medicine 05/01/14
--- OUTSIDE RECORDS SUMMARY | 2024-12-17 21:19 | XMS_ITS | Clinical Summary ---
Author Organization [facility] Address [facility] [place] [address] Care Team Providers Care Automation Operator Name Role Phone Historical, Dalila Primary [...] therelease of HIV test results or diagnoses. [id number] Social History Tobacco Use Types Packs/Day Years Used Date Smoking Tobacco: Never Assessed Comments Unknown Sex and Gender Information Value Date Recorded Sex Assigned at Not on file Legal Sex Female 4:24 PM EST Gender Identity Not on file Sexual Orientation Not on file Plan of Treatment Not on file Care Teams Automation Operator Relationship Specialty Start Date End Date Dalila Hicks PCP - General 11/05/08
--- OUTSIDE RECORDS SUMMARY | 2024-12-17 21:19 | XMS_ITS | Clinical Summary ---
Author Organization [facility] Address [address] [place] [address] Care Team Providers Care Sustainability Engineer Name Role Phone Jens Marrufo D.O. Primary Care Provider [phone] Source Comments [facility] is fully rolled out with thefollowing exceptions:General Clinical Research [facility] Social History Tobacco Use Types Packs/Day Years [...] of 3 - 19+ 3-dose series) 12/12/2010 HPV IMMUNIZATION (1 - 3-dose SCDM series) 12/12/2018 AMB SEASONAL FLU VACCINE (#1) 11/27/2024 COVID-19 Vaccine ( - 2023-2 5 season) 2024 HIB IMMUNIZATION Aged Out No longer e [...] to complete this topic Insurance [employer] Care Teams Sustainability Engineer Relationship Specialty Start Date End Date Jens Marrufo D.O. [address] [place] [address] PCP - General 07/25/08
--- OUTSIDE RECORDS SUMMARY | 2024-12-17 21:19 | XMS_ITS | Patient Health Record ---
Author Organization [facility] Address [address] [facility] [address] [place] [address] Care Team Providers Care Plug Cutter Name Role Phone Mai Gaviria Unavailable [phone] Reason For Referral No Information Social History [...] you an other tobac co user? No Plan Of Treatment No Information
--- OUTSIDE RECORDS SUMMARY | 2024-12-17 21:19 | XMS_ITS | Clinical Summary ---
Author Organization [facility] Address [address] [place] [address] Care Team Providers Care Long Term Care Pharmacist Name Role Phone Jose Rojo MD Primary Care Provider [phone] Allergies Active Allergy Reactions Criticality Noted Date [...] Date Last Done Comments Tetanus Vaccination (Every 10 Years) 12/12/2009 Lipid Screening 2011 Cervical Cancer Screening 12/12/2012 HPV Vaccine (1 - 3-dose SCDM series) 12/12/2018 Depression Screening 03/29/2024 COVID-19 Vaccine ( season) 2024 Influenza Vaccination (#1) 2024 Care Teams Long Term Care Pharmacist Relationship Specialty Start Date End Date Jose Rojo [place] [phone] PCP - General Internal Medicine 12/30/15
--- OUTSIDE RECORDS SUMMARY | 2024-12-17 21:19 | XMS_ITS | Patient Health Record ---
[facility] [address] [facility] [address] [place] [id number] Care Team Providers Care Targeteer Name Role Phone Jewell Briones Primary Care Provider [phone] Allergies No Known Allergies Reason For Referral [...] Vaccine Route Administration Date Status Comme nts COVID 19 Moderna Unknown 04/23/2020 Administered COVID 19 Moderna Unknown 05/21/2020 Administered COVID 19 Moderna Unknown 02/24/2021 Administered DT, 7 YEARS OR OLDER Unknown 12/20/2002 Administered Fluzone Quad (6months&older) IM Intramuscular 01/18/2020 Administered MMR Unknown 08/04/1994 Administered MMR Unknown 10/20/1996 Administered xGardasil Unknown 12/18/2013 Administered xGardasil Unknown 03/20/2014 Administered Problems Problem Type SNOMED Code ICD Code Onset Dates Problem Status W/U Status Risk Notes Problem Vitamin D deficiency (75558923) Vitamin D deficiency (E55.9) Active confirmed Problem Vitamin B12 deficiency (044668687) Vitamin B12 deficiency (E53.8) Active confirmed Problem Essential hypertension (28738441) Essential hypertension (I10) Active confirmed Problem Anxiety (14065472) Anxiety (F41.9) Active confirmed Problem Thyroid nodule (172532978) Thyroid nodule (E04.1) Active confirmed Problem Transient insomnia (806920204) Transient insomnia (F51.02) Active confirmed Problem Thyromegaly (9045887) Thyromegaly (E01.0) Active confirmed Problem Anxiety depression (655421584) Anxiety with depression (F41.8) Active confirmed Plan Of Treatment No Information Insurance Providers Payer Name Payer Address Payer Phone Subscriber Number Group Number Insured Name Patient Relationship to Insured Coverage Start Date Coverage End Date [facility] [facility] [id number] [place] [address] [id number] Mariaa Rodriguez Self - patient is [...]
--- OUTSIDE RECORDS SUMMARY | 2024-12-17 21:19 | XMS_ITS | Encounter Summary ---
Author Organization [facility] Address [address] [place] [address] Care Team Providers Care Gis Analyst Developer Name Role Phone Jose Rojo MD Primary Care Provider [phone] Encounter Details Date Type Department Care Team (Late st Contact Info) Description 03/17/2016 Orders Only Laboratory [address] [place] [address] [place] [address] Rob Walker MD [address] [facility] [place] [address] [place] [address] Oligomenorrhea (Primary Dx) Social History Tobacco Use [...] menstruation documented in this encounter Care Teams Gis Analyst Developer Relationship Specialty Start Date End Date Jose Rojo MD [employer] [place] [phone] PCP - General Internal Medicine 12/30/15 documented as of this encounter
--- OUTSIDE RECORDS SUMMARY | 2024-12-17 21:19 | XMS_ITS | Clinical Summary ---
Author Organization [facility] Address [facility] [place] [address] Phone Care Team Providers Care Welding Machine Tender Name Role Phone Unavailable Unavailable Conditions or Problems No information available. Medications No information available. Medications Administered No information available. Allergies, Adverse Reactions, Alerts No information available. Results No information available. Plan of Care No information available. Procedures No information available. Vital Signs No information available. Immunizations No information available. Advance Directives No information available.
--- NOTE | 2024-12-17 21:47 | ECG_ITS ---
APPROVED REPORT Exam: Resting ECG HR:92 bpm ECG Measurements Heart Rate 92 AXES WI 142 P 59 QRSd 85 QRS 69 QT 369 T 26 QTc 419 Conclusion Normal sinus rhythm without acute ST or T wave changes concerning for ischemia Electronically signed by : Michelle Chamorro, 12/20/2024 00:35:40
--- NOTE | 2024-12-17 21:54 | HMH.EDGENADL ---
Discharge Plan Disposition Patient Disposition: Home, Self-Care Condition: Good Prescriptions Prescriptions: New meclizine 25 mg tablet 25 mg PO DAILY PRN (Reason: motion sickness) Qty: 20 0RF No Action desvenlafaxine succinate [Pristiq] 50 mg tablet extended release 24 hr 50 mg PO DAILY Qty: 60 2RF lisdexamfetamine [Vyvanse] 40 mg capsule 40 mg PO DAILY Qty: 30 0RF Vraylar 1.5 mg capsule 1.5 mg PO DAILY Qty: 30 3RF alprazolam 0.25 mg tablet 0.25 mg PO TID PRN (Reason: anxiety) Qty: 15 0RF omeprazole 20 mg capsule,delayed release(DR/EC) 20 mg PO DAILY Qty: 90 1RF nebivolol 10 mg tablet 10 mg PO DAILY Qty: 30 2RF cholecalciferol (vitamin D3) 125 mcg (5,000 unit) tablet 125 mcg PO DAILY Qty: 90 1RF amlodipine 10 mg tablet 10 mg PO DAILY Qty: 30 2RF Slynd 4 mg (28) tablet 1 tab PO DAILY Qty: 84 4RF Referrals Follow up/Referrals: Tracy Ortega APRN [Primary Care Provider, Family Practice] - See instructions Activity Restrictions/Add. Instructions Additional Instructions/Restrictions: Take the meclizine as needed for dizziness. Return to the emergency department if you are unable to walk or ambulate or have any other acute or worsening symptoms. Clinical Impressions Clinical Impression: Vertigo Print Language Print Language: [place] Island[place] Discharge ED Provider: Michelle Chamorro General Adult HPI General Chief complaint: Dizziness Stated complaint: dizzyness,lightheaded Time Seen by Provider: 12/17/24 21:54 Mode of Arrival: Ambulatory Description of Symptoms (Recalled from ER Triage Doc. by RN): Patient states she thinks her blood pressure is elevated. States she has been dizzy, and light headed for the past two days. States these are new symptoms, patient does not usually experince with hypertension. Patient went to [facility] today, [facility] stated patient needed to be seen at ER. History of Present Illness HPI narrative: Patient is an otherwise healthy 34-year-old female who presents to the emergency department with lightheadedness and dizziness. Patient states that the symptoms have been present for the last 2 days. Patient states that they are positional in nature worse with movement. Patient states that they appear to be less present when lying flat. Patient has not had a headache and had some high blood pressure and was before her. Patient denies any chest pain or shortness of breath. Patient denies any abdominal pain nausea vomiting or diarrhea. Patient denies any new medication changes. Patient denies any previous similar symptoms. Patient denies history of vertigo. Related Data Previous Rx's ?Medication ?Instructions ?Recorded omeprazole 20 mg capsule,delayed 20 mg PO DAILY #90 caps 01/04/24 release amlodipine 10 mg tablet 10 mg PO DAILY #30 tabs 06/06/24 cholecalciferol (vitamin D3) 125 125 mcg PO DAILY #90 tabs 07/06/24 mcg (5,000 unit) tablet nebivolol 10 mg tablet 10 mg PO DAILY #30 tabs 07/06/24 drospirenone (contraceptive) 4 mg 1 tab PO DAILY #84 tabs 11/16/24 (28) tablet (Slynd) alprazolam 0.25 mg tablet 0.25 mg PO TID PRN anxiety #15 tabs 11/22/24 cariprazine 1.5 mg capsule 1.5 mg PO DAILY #30 caps 11/22/24 (Vraylar) desvenlafaxine succinate 50 mg 50 mg PO DAILY #60 tabs 11/22/24 tablet,extended release 24 hr (Pristiq) lisdexamfetamine 40 mg capsule 40 mg PO DAILY #30 caps 11/22/24 (Vyvanse) meclizine 25 mg tablet 25 mg PO DAILY PRN motion sickness 12/17/24 #20 tabs Allergies Allergy/AdvReac Type Severity Reaction Status Date / Time No Known Allergies Allergy Verified 11/22/24 14:[address] [facility] Disclaimer: The information contained in this section may have been updated after the patient was seen, as this information can be updated by other users. Medical History Brain fog Fatigue Has daytime drowsiness Acute blood loss anemia 38 weeks gestation of Tachycardia GERD (gastroesophageal reflux disease) Pain of both breasts Vitamin D deficiency Vitamin B12 deficiency Thyroid nodule Obesity Anxiety with depression Essential hypertension Surgical History S/P Elective History of cholecystectomy History of tonsillectomy Family History Other Cancer Diabetes Heart attack Hyperlipidemia Hypertension Kidney disease Stroke Thyroid disorder Social History Smoking Status: Never smoker alcohol intake: never substance use type: denies use current occupational status: employed Travel in the last 8 weeks?: None adopted: No household members: other details: grandparents marital status: single number of children: 1 service: No working smoke detector in home: Yes firearms in home: No do you feel safe at home: Yes victim of physical abuse: No victim of emotional abuse: No victim of sexual abuse: No Have you lived/traveled outside [place] in past 30 days?: No Contact w/someone who lives/traveled outside [place] past 30 days?: No Exposure to someone with infectious disease in past 14 days?: No Do you have a fever (greater than 100.4 F or 38 C)?: No Have you tested positive for COVID-19?: No Exposed to someone with COVID-19 in past 14 days?: No Do you have a sore throat?: No Do you have a cough?: No Do you have any weakness?: No Do you have any diarrhea?: No Are you experiencing any unusual bleeding?: No Do you have any muscle aches/pain?: No Do you have any abdominal pain?: No Are you experiencing loss of taste or smell?: No Other Medical History Have you received the Flu Vaccine for this season: No Have you received the Pneumonia Vaccine: No ROS Obtained: Yes All systems reviewed & no additional complaints except as documented and Yes Systems reviewed as appropriate & no additional complaints except as documented Physical Exam General General appearance: alert and in no apparent distress Head Head exam: atraumatic, normocephalic and normal inspection Eye Eye exam: Present normal appearance, PERRL and EOMI; Absent scleral icterus ENT ENT exam: Present normal exam and normal external ear exam Neck Neck exam: Present normal inspection and full ROM Chest Chest inspection: Present normal inspection and symmetric chest wall rise Respiratory Respiratory exam: Present normal lung sounds bilaterally; Absent respiratory distress or wheezes Cardiovascular Cardiovascular exam: Present regular rate, normal rhythm and normal heart sounds Abdominal Exam Abdominal exam: Present soft and distention; Absent tenderness, guarding or rebound Extremities Exam Extremities exam: Present normal inspection and full ROM Back Exam Back exam: Present normal inspection and full ROM Neurological Exam Neurological exam: Present alert, oriented X3, CN II-XII intact, normal gait, motor sensory deficit, reflexes normal and other (Vertical nystagmus is not present, horizontal nystagmus present. Motor sensation intact x 4. Non-focal neuroexam.) Psychiatric Psychiatric exam: Present normal affect and normal mood Skin Skin exam: Present warm and dry Medical Decision Making Medical Records Medical records reviewed: Yes I reviewed the patient's medical records. Screening: Per USPSTF and CDC recommendations, given the prevalence of disease in our region, it is our hospital?s policy to screen for HIV and viral Hepatitis for all patients aged 18 and over and those with ongoing risk factors. Marco A Inquiry Pt receiving controlled substance: No Vital Signs: 12/17/24 21:07 12/17/24 21:52 12/17/24 22:01 Temperature 98.7 F Temperature Source Oral Pulse Rate 99 H 105 H Pulse Rate [Right] 84 Respiratory Rate 17 14 7 L Blood Pressure 126/93 H 173/100 H Blood Pressure [Right Arm] 181/112 H Blood Pressure Mean Blood Pressure Mean [Right Arm] 135 Blood Pressure Source Blood Pressure Source [Right Arm] Automatic Cuff Blood Pressure Position [Right Arm] Sitting 02 Sat by Pulse Oximetry 98 100 100 Oxygen Delivery Method Room Air 12/17/24 22:16 12/17/24 22:22 12/17/24 22:31 Temperature Temperature Source Pulse Rate 80 95 H Pulse Rate [Right] Respiratory Rate 24 25 H 13 Blood Pressure 143/107 H 148/95 H 145/91 H Blood Pressure [Right Arm] Blood Pressure Mean Blood Pressure Mean [Right Arm] Blood Pressure Source Blood Pressure Source [Right Arm] Blood Pressure Position [Right Arm] 02 Sat by Pulse Oximetry 100 100 Oxygen Delivery Method 12/17/24 23:00 12/17/24 23:15 12/17/24 23:30 Temperature Temperature Source Pulse Rate Pulse Rate [Right] Respiratory Rate Blood Pressure 136/77 132/84 130/84 Blood Pressure [Right Arm] Blood Pressure Mean 96 101 94 Blood Pressure Mean [Right Arm] Blood Pressure Source Blood Pressure Source [Right Arm] Blood Pressure Position [Right Arm] 02 Sat by Pulse Oximetry Oxygen Delivery Method 12/17/24 23:45 Temperature 98.7 F Temperature Source Oral Pulse Rate 88 Pulse Rate [Right] Respiratory Rate 18 Blood Pressure 154/78 H Blood Pressure [Right Arm] Blood Pressure Mean Blood Pressure Mean [Right Arm] Blood Pressure Source Automatic Cuff Blood Pressure Source [Right Arm] Blood Pressure Position [Right Arm] 02 Sat by Pulse Oximetry Oxygen Delivery Method Room Air Lab Data Lab results reviewed: Yes I reviewed the patient's lab results. Lab Results 12/17/24 22:07: WBC 6.8, RBC 4.40, Hgb 9.6 L, Hct 32.7 L, MCV 74.3 L, MCH 21.8 L, MCHC 29.4 L, RDW 17.2, Plt Count 320, MPV 9.6, Neut % (Auto) 47.2, Lymph % (Auto) 36.0, [place] % (Auto) 10.3 H, Eos % (Auto) 5.5, Baso % (Auto) 0.7, Neut # (Auto) 3.2, Lymph # (Auto) 2.4, [place] # (Auto) 0.7, Eos # (Auto) 0.4, Baso # (Auto) 0.1, Sodium 139, Potassium 3.8, Chloride 106, Carbon Dioxide 24, Anion Gap 12.8, BUN 8, Creatinine 0.70, Estimated Creat Clear 174, Estimated GFR 96, Est GFR ( Amer) 117, Glucose 102 H, Calcium 9.4, Total Bilirubin 0.2, AST 22, ALT 16, Alkaline Phosphatase 66, Total Protein 7.3, Albumin 4.2, Globulin 3.1, Albumin/Globulin Ratio 1.4, Serum HCG, Qual Negative 12/17/24 22:07 12/17/24 22:07 Orders (Tests/Meds): ED MEDICATIONS Discontinued Medications Generic Name Dose Route Start Last Admin Trade Name Freq PRN Reason Stop Dose Admin Acetaminophen 1,000 mg 12/17/24 22:12 12/17/24 22:19 Acetaminophen 500mg Tab PO 12/17/24 22:13 1,000 mg ONCE ONE Administration Diazepam 5 mg 12/17/24 22:59 12/17/24 23:06 Diazepam 10mg/2ml Syringe IV 12/17/24 23:00 5 mg ONCE ONE Administration Sodium Chloride 1,000 mls @ 999 mls/hr 12/17/24 22:12 12/17/24 23:30 Sod Chlor 0.9% 1000ml Bag IV 12/17/24 23:12 Infused .Q1H1M ONE Infusion Ketorolac Tromethamine 30 mg 12/17/24 22:13 12/17/24 22:19 Ketorolac 30mg/Ml Vial IV 12/17/24 22:14 30 mg ONCE ONE Administration Meclizine HCl 25 mg 12/17/24 22:12 12/17/24 22:20 Meclizine 25mg Tablet PO 12/17/24 22:13 25 mg ONCE ONE Administration ORDERS Category Date Time Status CT head/brain wo con Stat Cat Scan 12/17/24 22:13 Completed CBC w/Auto Diff [Complete Blood Count Auto Diff] Stat Lab 12/17/24 22:07 Completed CMP [Comprehensive Metabolic Panel] Stat Lab 12/17/24 22:07 Completed HCG Qualitative, Serum Stat Lab 12/17/24 22:07 Completed Medical Decision Narrative: Patient is an otherwise healthy 34-year-old female who presented to the emergency department with dizziness. Patient describes it as a room spinning sensation worse with movement. On arrival, patient was hemodynamically stable mildly hypertensive but vital signs otherwise unremarkable. Differential includes but not limited to: BPPV, intracranial hemorrhage, intracranial mass, intracranial ischemia, tension headache, migraine headache, central vertigo, amongst others. On exam, patient had horizontal nystagmus. No vertical nystagmus. Patient's symptoms were present with movements not present at rest. Patient had an otherwise nonfocal neuroexam. Patient's symptoms consistent with likely peripheral vertigo. Patient was given a migraine cocktail with Toradol Tylenol and IV fluids and patient was given meclizine. On reassessment, patient continued to have symptoms therefore patient was given IV Valium. Patient's labs were reviewed and interpreted by myself: CBC showed no leukocytosis, hemoglobin was stable, CMP was unremarkable. negative. CT scan of the head was reviewed and interpreted by myself and showed no acute intracranial pathology, radiology read said similar. On further reassessment, patient's symptoms have resolved patient is able to ambulate without difficulty. At this time I feel the patient is appropriate for discharge home. Return precautions were discussed the patient was discharged home in stable condition. Critical Care Critical Care Time Critical Care Time: No
--- NOTE | 2024-12-17 22:13 | CT_ITS ---
PROCEDURE INFORMATION: Exam: CT Head Without Contrast Exam date and time: 12/17/2024 10:47 PM Age: 34 years old Clinical indication: Pain; Headache; Additional info: Headache, HTN TECHNIQUE: Imaging protocol: Computed tomography of the head without contrast. Radiation optimization: All CT scans at this facility use at least one of these dose optimization techniques: automated exposure control; mA and/or kV adjustment per patient size (includes targeted exams where dose is matched to clinical indication); or iterative reconstruction. COMPARISON: No relevant prior studies available. FINDINGS: Brain: No acute intracranial hemorrhage, cerebral edema, or midline shift. Cerebral ventricles: No hydrocephalus. Paranasal sinuses: Mild mucosal thickening is present in the paranasal sinuses. Mastoid air cells: Visualized mastoid air cells are well aerated. Orbital cavities: The visualized orbits appear unremarkable. Bones: Unremarkable. No acute fracture. Soft tissues: Unremarkable. IMPRESSION: No acute intracranial abnormality.
[2024-12-17] MEDS: KETOROLAC 30MG/ML VIAL 30 MG IV (22:19)
[2024-12-17] MEDS: ACETAMINOPHEN 500MG TAB 1000 MG PO (22:19)
[2024-12-17] MEDS: 0.9 % SODIUM CHLORIDE 1000ML 1,000 ML 999 ML IV (22:19)
[2024-12-17] MEDS: MECLIZINE 25MG TABLET 25 MG PO (22:20)
[2024-12-17 22:21] LABS: Albumin Level 4.2 g/dl (3.5-5.0); Chloride 106 mmol/L (98-107); Sodium 139 mmol/L (136-145)
[2024-12-17 22:22] LABS: Hematocrit 32.7 % (37.0-47.0); Hemoglobin 9.6 g/dL (12.2-16.2); Immature Granulocytes % 0.3 %; Mean Corpuscular HGB Conc 29.4 g/dL (31.8-35.4); Mean Corpuscular Hemoglobin 21.8 pg (27.0-31.2); Mean Corpuscular Volume 74.3 fl (81-99); Nucleated Red Blood Cells % 0 %; Platelet Count 320 K/mm3 (142-424); Potassium 3.8 mmoL/L (3.5-5.1); Red Blood Count 4.40 M/mm3 (4.20-5.40); Red Cell Distribution Width-SD 46.1 fL; White Blood Count 6.8 K/mm3 (4.8-10.8)
[2024-12-17 22:24] LABS: Alanine Aminotransferase 16 U/L (12-78); Albumin/Globulin Ratio 1.4 (1.1-1.8); Alkaline Phosphatase 66 U/L (38-126); Anion Gap 12.8 mEq/L (5-15); Aspartate Amino Transferase 22 U/L (14-36); Bilirubin,Total 0.2 mg/dl (0.2-1.3); Blood Urea Nitrogen 8 mg/dl (7-17); Carbon Dioxide 24 mmol/L (22.0-30.0); Creatinine Clearance Estimated 174 mL/min (50-200); Creatinine,Serum 0.70 mg/dl (0.52-1.04); Estimated Glomerular Filt Rate 96 ml/min (>60); GFR (African American) 117 ML/MIN (>60); Globulin 3.1 g/dL (1.3-3.2); Total Protein,Serum 7.3 g/dl (6.3-8.2)
[2024-12-17 22:25] LABS: Calcium 9.4 mg/dl (8.4-10.2); Glucose 102 mg/dl (74-100)
[2024-12-17 22:31] LABS: HCG Qualitative, Serum Negative (Negative)
[2024-12-17] MEDS: diazePAM 10MG/2ML SYRINGE 5 MG IV (23:06)
--- NOTE | 2024-12-17 23:38 | PC.NURSE ---
Pt states she feels better after fluids and meds.
== END 2024-12-17 23:52 | disposition home or self-care (01) ==
PROVIDERS: Emergency Provider Student in an Organized Health Care Education/Training Program; PCP Nurse Practitioner
DX: R42 Dizziness and giddiness (principal); I10 Essential (primary) hypertension
CPT/HCPCS: 70450; 80053; 84703; 85025; 93005; 96361; 96374; 96375; 99284; J1885; J3360; J7030